=== PATIENT | male | born 1945 | race Caucasian/White ===

== ENCOUNTER 2020-06-16 12:27 | Outpatient (CLI) | payer MEDICARE, OTHER, SELFPAY ==
--- NOTE | ~2020-06-16 | US_ITS ---
EXAMINATION: US renal BI EXAM DATE: 06/16/2020 13:10 INDICATION: Abnormal blood chemistry. TECHNIQUE: Multiple grayscale and Doppler images of the kidneys were obtained (by a technologist who performed the scan) and subsequently reviewed. There is no prior study for comparison. FINDINGS: There is mild bilateral renal cortical thinning. Right kidney: There is normal contour and echogenicity. It measures 10.8 x 5.5 x 5.3 centimeters. T here are no focal renal lesions identified. There is no hydronephrosis. Left kidney: There is normal contour and echogenicity. It measures 10.7 x 4.2 x 4.9 centimeters. Th ere are no focal renal lesions identified. There is no hydronephrosis. Bladder unremarkable. Prostate measures 4 cm in diameter. IMPRESSION: 1. Mild bilateral renal cortical thinning. Reviewed, dictated and finalized at location B.
== END 2020-06-16 12:28 | disposition home or self-care (01) ==
PROVIDERS: PCP Internal Medicine; Visit Provider Internal Medicine
DX: R79.89 Other specified abnormal findings of blood chemistry (principal); R93.89 Abnormal findings on diagnostic imaging of other specified body structures
CPT/HCPCS: 76775

== ENCOUNTER 2022-01-01 15:08 | Inpatient (IN) | payer MEDICARE, OTHER, SELFPAY ==
--- NOTE | ~2022-01-01 | NM_ITS ---
EXAMINATION: NM polo stress w perfusion DATE: 01/02/2022 13:26 INDICATION: Chest pain. TECHNIQUE: Rest images were obtained following intravenous administration of 10 mCi Tc99m tetrofosmin (Myoview). The patient was infused intravenously with Lexiscan (regadenoson). Then, 31.8 mCi Tc99m t etrofosmin (Myoview) was administered intravenously, and stress images were obtained. Data was recons tructed into short axis and horizontal and vertical long axis SPECT images. Gated SPECT images were a lso obtained. COMPARISON: CT abdomen and pelvis 01/01/2022 FINDINGS: There is no definite reversible or fixed perfusion abnormality to suggest ischemia or infar ction. There is no segmental wall motion abnormality. Left ventricular ejection fraction measures > 70%. IMPRESSION: 1. No definite ischemia or infarct. 2. Normal left ventricular ejection fraction measuring >70%. Reviewed, dictated and finalized at location A.
--- NOTE | ~2022-01-01 | CT_ITS ---
EXAMINATION: CT abdomen pelvis wo con DATE: 01/01/2022 19:25 INDICATION: Left upper quadrant pain TECHNIQUE: Computed tomography (CT) of the abdomen and pelvis was performed without intravenous contr ast. The dose-length product (DLP) was 653.27 mGy-cm. Automated exposure control and iterative recons truction technique were employed. COMPARISON: None FINDINGS: Minimal dependent atelectasis is present in the lung bases. The heart size is normal. Th ere is a small sliding hiatal hernia. The liver, spleen, pancreas, gallbladder, and adrenal glands ar e normal. The kidneys are unremarkable. No pathologically enlarged abdominal or pelvic lymph nodes ar e identified. There is no free intraperitoneal gas or evidence of bowel obstruction. Colonic divertic ulosis is present without evidence of diverticulitis. There is a tiny fat-containing umbilical hernia . Changes of left inguinal hernia repair are noted. There is mild lumbar spondylosis. IMPRESSION: 1. No CT correlate for the patient's symptoms. Reviewed, dictated and finalized at location F.
[2022-01-01 15:36] VITALS: BP 179/82; PULSE 74; RESP 20; TEMP 36.2; O2SAT 98
--- NOTE | 2022-01-01 15:40 | ECG_ITS ---
Measurements Intervals [place] Rate: 78 P: 66 MD: 254 QRS: 0 QRSD: 82 T: 39 QT: 359 QTc: 409 Interpretive Statements SINUS RHYTHM WITH FIRST DEGREE AV BLOCK NO PREVIOUS ECG AVAILABLE FOR COMPARISON Electronically Signed On 01-03-2022 13:11:43 CDT by Natacha Clay M.D.
[2022-01-01 15:52] LABS: Basophils Percent Auto 0.3 % (0.2-1.2); Eosinophils Absolute Auto 0.2 K/mm3 (0-0.3); Eosinophils Percent Auto 2.4 % (0-4.4); Hematocrit 50.9 % (42.0-52.0); Hemoglobin 16.5 g/dL (14.0-18.0); Immature Granulocyte Absolute 0.02 K/mm3 (0.00-0.031); Immature Granulocyte Percent A 0.3 % (0-0.5); Lymphocytes Absolute Auto 1.47 K/mm3 (0.9-3.2); Lymphocytes Percent Auto 18.9 % (18.3-44.2); Mean Corpuscular HGB Conc 32.4 g/dl (32-36); Mean Corpuscular Hemoglobin 29.9 pg (26-34); Mean Corpuscular Volume 92.2 fl (80-100); Mean Platelet Volume 11.1 fl (7.4-10.4); Monocytes Absolute Auto 0.5 K/mm3 (0.1-0.6); Monocytes Percent Auto 5.9 % (2.6-8.5); Neutrophils Absolute Auto 5.6 K/mm3 (1.3-6.7); Neutrophils Percent Auto 72.2 % (45.5-73.1); Platelet Count Result 160 k/mm3 (150-375); Red Blood Count 5.52 M/mm3 (4.6-6.20); Red Cell Distribution Width 13.2 % (11.5-14.5); White Blood Count 7.8 K/mm3 (4.5-10.0)
[2022-01-01 16:04] LABS: Alanine Aminotransferase 20 U/L (4-50); Albumin Level 4.7 g/dL (3.5-5.1); Alkaline Phosphatase 87 U/L (38-126); Anion Gap 8 mmol/L (8-16); Aspartate Amino Transferase 33 U/L (17-59); Bilirubin,Total 0.9 mg/dL (0.2-1.3); Blood Urea Nitrogen 22 mg/dL (9-20); Calcium 9.9 mg/dL (8.4-10.2); Carbon Dioxide 28 mmol/L (22-30); Chloride 105 mmol/L (98-107); Estimated CRCL calculation 59 ml/min; Estimated Glomerular Filt Rate > 60; Glucose 117 mg/dL (65-110); Lipase 102 U/L (23-300); Potassium 4.9 mmol/L (3.4-5.0); Sodium 141 mmol/L (137-145)
[2022-01-01 16:52] LABS: Add Urine Microscopic? NO; Appearance Urine Clear (Clear); Bilirubin Urine Negative (Negative); Blood Urine Negative (Negative); Color Urine Straw (Yellow); Glucose Urine UA Negative (Negative); Ketones Urine Negative (Negative); Leukocyte Esterase Ur Negative LEU/UL (Negative); Nitrate Urine Negative (Negative); Protein Urine Negative (Negative); Specific Grav Ur 1.005 (1.001-1.035); Urobilinogen Urine Negative mg/dL (<2.0)
--- NOTE | 2022-01-01 19:03 | ED.ABDPAIN ---
HPI - Abdominal Pain General Chief Complaint: Abdominal Pain Stated Complaint: left sided abd pain Time Seen by Provider: 01/01/22 18:35 Source: patient Mode of arrival: ambulatory Limitations: no limitations History of Present Illness HPI narrative: Patient is a 76-year-old male complaining of left upper quadrant pain, was 5 out of 10, currently does not have any pain, nonradiating started approximately 4 days ago. Patient also complained of chest discomfort intermittent, mild, nonradiating started yesterday. Patient currently denies any chest pain or chest discomfort. Patient denies any shortness of breath, nausea, vomiting, diaphoresis, fever or chills. Related Data Home Medications Medication Instructions Recorded Confirmed aspirin 01/01/22 carvedilol 01/01/22 ciclopirox TOPICAL 01/01/22 felodipine mg PO 01/01/22 fluticasone propionate INTRANASAL 01/01/22 lisinopril 01/01/22 simvastatin mg 01/01/22 zolpidem 01/01/22 Allergies Allergy/AdvReac Type Severity Reaction Status Date / Time No Known Allergies Allergy Unknown Verified 01/01/22 19:46 Review of Systems Review of Systems: All systems reviewed & are unremarkable except as noted in HPI and below Constitutional: Constitutional: Denies body ache(s), Denies chills, Denies excessive sweating, Denies fatigue, Denies fever(s), Denies headache(s), Denies lethargy, Denies malaise, Denies weakness and Denies weight loss Eyes: Eyes: Denies blurry vision, Denies change in vision and Denies loss of vision ENT: Denies dizziness, Denies ear discharge, Denies headache(s), Denies lip swelling, Denies epistaxis, Denies nasal congestion, Denies neck pain, Denies throat swelling and Denies tongue swelling Cardiovascular: Cardiovascular: Denies diaphoresis, Denies rapid heart rate, Denies edema, Denies irregular heart rhythm, Denies lightheadedness, Denies palpitations, Denies dyspnea and Denies dyspnea on exertion Respiratory: Respiratory: Denies chest congestion, Denies cough, Denies hemoptysis, Denies dyspnea and Denies dyspnea on exertion Gastrointestinal: Gastrointestinal: Denies melena, Denies hematochezia, Denies diarrhea, Denies nausea, Denies vomiting and Denies hematemesis Musculoskeletal: Musculoskeletal: Denies abnormal gait, Denies deformity, Denies joint swelling, Denies limited range of motion, Denies neck pain and Denies numbness Neurologic: Denies Abnormal speech present, Denies abnormal gait, Denies confusion, Denies dizziness, Denies headache(s), Denies focal weakness, Denies loss of vision, Denies numbness, Denies Other visual disturbances, Denies Sensory deficit (Neuro) and Denies weakness Psychiatric: Psychiatric: Denies confusion, Denies depression, Denies auditory hallucinations, Denies homicidal ideation and Denies suicidal ideation Endocrine: Endocrine: Denies cold intolerance, Denies excessive sweating, Denies fatigue, Denies heat intolerance and Denies palpitations Hematologic/Lymphatic: Hematologic/Lymphatic: Denies easy bleeding and Denies easy bruising Allergic/Immunologic: Allergic/Immunologic: Denies lip swelling, Denies throat swelling and Denies tongue swelling PMFSH Comments Past medical history: Hypertension Family history: Hypertension Social history: Non-smoker no EtOH or drug use, lives at home with Exam Const: General: cooperative, healthy appearing, comfortable, no acute distress, well developed, alert and awake; No confusion Orientation/consciousness: oriented to person, oriented to place, oriented to time, patient oriented x3 and No confusion Limitations: no limitations HENMT: Head: normal to inspection, normocephalic and atraumatic Ears: hearing grossly normal bilaterally, TM normal on the right and TM normal on the left General nose exam: Normal external nose present, Normal nares present and No nasal discharge present Face and sinus: normal facial exam Mouth: Yes Normal oral and palatal mucosa present, Yes lip n
[2022-01-01 19:42] VITALS: BP 145/69; PULSE 70; RESP 14; O2SAT 99
[2022-01-01 19:45] LABS: Troponin I < 0.012 ng/mL (0.000-0.034)
[2022-01-01] MEDS: LACTATED RINGERS 1,000 ML 999 ML IV CONT (19:50)
--- NOTE | 2022-01-01 20:51 | PM.IMHP ---
H&P: HPI History of Present Illness Date/Time: 01/01/22 20:51 Chief Complaint: Epigastric pain. Narrative: This is a 76-year-old male with past medical history significant for hypertension, chronic back pain, former tobacco user. Patient presents to the emergency room due to abdominal pain localized to the left lower quadrant has had this pain for 4 days in a row known associated or accompanied by other symptoms like nausea vomiting or diarrhea however upon arrival to emergency room patient also complained of chest discomfort. Patient denies any dizziness, lightheadedness, syncope, near syncope, no PND, no orthopnea, no calves pain, he has chronic ankle swelling bilaterally, denies any fevers rigors or chills, preliminary workup has been essentially nonrevealing. Patient has been admitted for further evaluation, management and treatment. Review of Systems Review of Systems: Abdominal pain, chest discomfort. Constitutional: Constitutional: Denies chills, Denies fatigue, Denies fever(s), Denies malaise, Denies night sweats, Denies poor appetite and Denies weakness Eyes: Eyes: Denies change in vision ENT: Denies dysphagia, Denies vertigo, Denies dizziness, Denies nasal congestion, Denies nasal discharge, Denies nasal obstruction and Denies odynophagia Cardiovascular: Cardiovascular: Reports pedal edema, Denies leg edema, Denies lightheadedness, Denies radiating jaw, neck or arm pain, Denies palpitations, Denies dyspnea on exertion, Denies orthopnea and Denies paroxysmal nocturnal dyspnea Respiratory: Respiratory: Denies cough and Denies excessive phlegm production Gastrointestinal: Gastrointestinal: Reports abdominal pain, Denies dyspepsia, Denies heartburn, Denies diarrhea, Denies nausea and Denies vomiting Comments: Patient has been taking naproxen for chronic back pain Genitourinary: Genitourinary: Denies dysuria Musculoskeletal: Musculoskeletal: Reports back pain Integumentary/Breasts: Skin/Breast: Denies rash Neurologic: Denies vertigo, Denies dizziness, Denies focal weakness and Denies Sensory deficit (Neuro) Psychiatric: Psychiatric: Reports no additional psychiatric complaints and Reports as per HPI Endocrine: Endocrine: Reports cold intolerance, Reports heat intolerance, Reports polyphagia, Reports polydipsia and Reports palpitations Hematologic/Lymphatic: Hematologic/Lymphatic: Reports no additional hematologic/lymphatic complaints and Reports as per HPI Allergic/Immunologic: Allergic/Immunologic: Reports no additional allergic/immunologic complaints and Reports as per HPI PMFSH Social History Social History Years smoked: 2 Smoking status: Former smoker Tobacco type: pipe Second hand tobacco smoke exposure: Yes Additional smoking assessment comments: smoked a pipe Alcohol intake: current Drinks per week: 3 Substance use: never Substance use type: does not use Spiritual care concerns: No Meds Home Medications and Allergies Home Medications Medication Instructions Recorded Confirmed Type aspirin 81 mg PO DAILY 01/01/22 01/01/22 History carvedilol 6.25 mg PO BID 01/01/22 01/01/22 History ciclopirox 1 applic TOPICAL DAILY 01/01/22 01/01/22 History felodipine 5 mg PO DAILY 01/01/22 01/01/22 History fexofenadine [Yanna Allergy] 180 mg PO DAILY PRN 01/01/22 01/01/22 History fluticasone propionate 1 spray INTRANASAL DAILY PRN 01/01/22 01/01/22 History lisinopril 40 mg PO DAILY 01/01/22 01/01/22 History melatonin 3 mg PO HS 01/01/22 01/01/22 History naproxen 500 mg PO BID PRN 01/01/22 01/01/22 History simvastatin 20 mg PO QPM 01/01/22 01/01/22 History zolpidem 5 mg PO HS 01/01/22 01/01/22 History Allergies Allergy/AdvReac Type Severity Reaction Status Date / Time No Known Allergies Allergy Unknown Verified 01/02/22 03:28 Vital Signs Vital Signs - 24 hr 01/01/22 15:36 01/01/22 19:42 Temperature 97.1 F L Pulse Rate 74 70 Respiratory Rate 20 14 Blood Pressure 179/82 H 145/69 H
[2022-01-01 22:24] VITALS: BP 152/70; PULSE 61; RESP 16; O2SAT 97
[2022-01-01 22:52] LABS: Troponin I < 0.012 ng/mL (0.000-0.034)
[2022-01-01 22:57] VITALS: BP 149/71; PULSE 66; RESP 18; O2SAT 99
[2022-01-01 23:12] VITALS: BMI 26.9
[2022-01-01 23:13] VITALS: BP 136/71; PULSE 63; RESP 20; TEMP 36; O2SAT 94
--- NOTE | 2022-01-01 23:15 | ADMGEN ---
This patient, Diego Ford, was admitted to 2 Medical Room 242-. Patient/family oriented to hospital policies and general routines including ID bracelet, bed and alarms, visiting hours, pain management, procedures, bathroom and other care routines, personal items, smoking policy, room service/diet, and visiting hours. Information on how to activate the Rapid Response Team has been discussed. Patient/Family are encouraged to report perceived risks to care and to ask questions if they do not understand what they are told or what they should do.
[2022-01-01 23:17] VITALS: PULSE 63; RESP 20; O2SAT 94
[2022-01-02] VITALS (12 sets, daily range): BP systolic 129–139; BP diastolic 66–71; PULSE 61–100; RESP 17–20; TEMP 35.9–36.8; O2SAT 96–98
--- NOTE | 2022-01-02 | ECHO_ITS ---
Patient Info Name: Deigo Ford Age: 76 years : 1945 Gender: Male Ht: 72 in Wt: 198 lbs BSA: 2.15 m2 HR: 65 bpm BP: 129 / 71 mmHg Heart Rhythm: Sinus Rhythm Technical Quality: Fair Exam Date: 01/02/2022 8:43 AM Exam Location: [facility] Patient Status: Outpatient Admit Date: 01/01/2022 Staff Ordering Physician: Jorge Smyth DO Building Services Coordinator: Jessica Brizuela RDCS Attending Provider: Naveen Blackwell MD Referring Physician: Haja BULLOCK; Exam Type: CA echo doppler color flow Study Info Indications - LUCIA Complete two-dimensional, color flow and Doppler transthoracic echocardiogram is performed. Summary 1. Complete two-dimensional, color flow and Doppler transthoracic echocardiogram is performed. 2. Left ventricular chamber dimension is normal. 3. Left ventricular systolic function is normal, estimated at 65-70%. 4. The left ventricular diastolic function is normal. 5. E/e' tissue doppler is not perform. 6. There is severe aortic valve sclerosis. 7. There is mild aortic valve stenosis based on a peak velocity of 195 cm/s, mean gradient of 8 mmHg, and aortic valve area of 1.9 cm2. 8. The mitral valve has moderately calcified leaflets. 9. No pulmonary hypertension, estimated pulmonary arterial systolic pressure is 18 mmHg. Left Ventricle E/e' tissue doppler is not perform. Left ventricular chamber dimension is normal. Left ventricular systolic function is normal, estimated at 65-70%. The left ventricular diastolic function is normal. Right Ventricle Right ventricular systolic function is normal and with normal TAPSE 2.5 cm. Right ventricular chamber dimension is normal. Left Atria Left atrial chamber dimension is normal. Right Atria Right atrial chamber dimension is normal. Aortic Valve There is mild aortic valve stenosis based on a peak velocity of 195 cm/s, mean gradient of 8 mmHg, and aortic valve area of 1.9 cm2. The aortic valve is trileaflet. There is severe aortic valve sclerosis. There is no aortic valve regurgitation. Pulmonic Valve There is no pulmonic regurgitation. Mitral Valve The mitral valve has moderately calcified leaflets. There is no mitral valve stenosis. There is no mitral valve regurgitation. Tricuspid Valve There is no tricuspid valve regurgitation. No pulmonary hypertension, estimated pulmonary arterial systolic pressure is 18 mmHg. Pericardium/Pleural There is no pericardial effusion. Inferior Vena Cava Normal inferior vena cava with >50% collapse upon inspiration consistent with normal right atrial pressure, 5 mmHg. Aorta The aortic root size at the sinus of Valsalva is normal. Left Ventricular Outflow Tract Name Value Normal LVOT 2D LVOT Diameter 2.1 cm LVOT Doppler LVOT Peak Gradient 5 mmHg LVOT Mean Gradient 2 mmHg LVOT VTI 20 cm LVOT VTI/AV VTI Ratio 0.6 LVOT Stroke Volume 71 ml LVOT CO 5.7 l/min LVOT CI
--- NOTE | 2022-01-02 | EST_ITS ---
Patient Info Name: Diego Ford Age: 76 years : 1945 Gender: Male Ht: 72 in Wt: 198 lbs BSA: 2.15 m2 Exam Date: 01/02/2022 11:37 AM Exam Location: [facility] Stress Patient Status: Inpatient Admit Date: 01/01/2022 Staff Ordering Physician: Jorge Smyth DO Attending Provider: Naveen Blackwell MD Exercise Technologist: Radha Méndez RDCS Exercise Physician: Jorge Smyth DO Exam Type: CA stress polo w NM Study Info Indications R07.9 - Chest pain, unspecified A regadenoson stress test was performed. Summary 1. 1. Negative lexiscan stress test for ischemic ST changes by ECG criteria. 2. 2. Baseline hypertension. 3. 3. Nuclear scan to follow and will be reported separately. Please correlate with it. 4. 4. Patient informed of the above results. Protocol: Lexiscan Stress ECG Details Stage: REST Duration (min): 7 min : 17 sec HR (bpm): 81 SBP (mmHg): 142 DBP (mmHg): 70 Stage: REST Duration (min): 11 min : 29 sec HR (bpm): 82 SBP (mmHg): 142 DBP (mmHg): 70 Stage: STAGE 1 Duration (min): 0 min : 59 sec HR (bpm): 106 SBP (mmHg): 147 DBP (mmHg): 75 Stage: RECOVERY Duration (min): 1 min : 0 sec HR (bpm): 105 SBP (mmHg): 136 DBP (mmHg): 71 Stage: RECOVERY Duration (min): 2 min : 0 sec HR (bpm): 117 SBP (mmHg): 136 DBP (mmHg): 71 Stage: RECOVERY Duration (min): 3 min : 0 sec HR (bpm): 112 SBP (mmHg): 138 DBP (mmHg): 74 Stage: RECOVERY Duration (min): 4 min : 0 sec HR (bpm): 102 SBP (mmHg): 138 DBP (mmHg): 74 Stage: RECOVERY Duration (min): 5 min : 0 sec HR (bpm): 102 SBP (mmHg): 148 DBP (mmHg): 78 Stage: RECOVERY Duration (min): 5 min : 5 sec HR (bpm): 101 SBP (mmHg): 148 DBP (mmHg): 78 Rest HR: 82 bpm Peak HR: 117 bpm Rest Sys BP: 142 mmHg Peak Sys BP: 148 mmHg Max Pred HR: 142 bpm % Max Pred HR: 82 % Target HR: 121 bpm Max RPP: 17,316 bpm*mmHg Termination Reason: Completed protocol Cardiac Symptoms: Shortness of breath Total Time: 1 min : 0 sec Rest Morales BP: 70 mmHg Peak Morales BP: 78 mmHg Total Dose: 0.4 mg Resting ECG Sinus rhythm with first degree AV block. Stress ECG No ST changes. Arrhythmias None. Report Signatures
[2022-01-02 01:11] LABS: Troponin I < 0.012 ng/mL (0.000-0.034)
--- NOTE | 2022-01-02 04:23 | ECG_ITS ---
Measurements Intervals [place] Rate: 66 P: MT: 0 QRS: -16 QRSD: 78 T: 13 QT: 390 QTc: 411 Interpretive Statements SINUS RHYTHM WITH 2ND DEGREE AV BLOCK, MOBITZ TYPE I ([place]) COMPARED TO ECG 01/01/2022 18:41:45 NO SIGNIFICANT CHANGES Electronically Signed On 01-03-2022 13:24:50 CDT by Natacha Clay M.D.
[2022-01-02] MEDS: carvediloL 6.25 MG TABLET PO ×2 (05:01→16:36)
--- NOTE | 2022-01-02 06:21 | PC.NURSE ---
patient ekg in ed showed sr 1st degree avb. tele strip when arrived on floor showed same. and patient denied chest discomfort. at 0400 rhythm changed to a second degree avb type one. called and informed dr villanueva and orders received. repeat ekg verified second degree avb. coreg given early. patient remained asymptomatic and is asymptomatic currently. vs stable. tni neg x3.
--- NOTE | 2022-01-02 07:52 | PM.CNCAR ---
Assessment and Plan Assessment and plan (1) Chest pain in adult: Code(s): R07.9 - Chest pain, unspecified Status: Acute Assessment and Plan: Atypical. Resolved. Could be musculoskeletal. He has been ruled out for CA by serial troponin and EKG. Obtain Lexiscan myoview stress test and echo. If unremarkable, no further cardiac workup is needed. (2) Abdominal pain: Qualifiers: Abdominal location: unspecified location Qualified Code(s): R10.9 - Unspecified abdominal pain Code(s): R10.9 - Unspecified abdominal pain Status: Acute Assessment and Plan: Workup per hospitalist. (3) Hypertension: Code(s): I10 - Essential (primary) hypertension Status: Acute Assessment and Plan: Stable. History of Present Illness History of Present Illness Consult date/time: 01/02/22 07:52 Reason for consult: CP. 76 yr old man presented to ER with abdominal pain. He has a history of hypertension. Reports he had intermittent left lower quadrant abdominal pain for 4 days described as a twinge of pain. While in ER waiting he reported he had right sided chest pain for 30 minutes earlier in the day and then while waiting he had left sided chest pain transiently. No recurrences. He can walk 1/2 mile at a slow pace. Denies orthopnea, sob, PND, edema, palpitations, dizziness. EKG shows sinus rhythm with first degree AV block, and then while sleeping he had second degree AV block, type I. Troponin neg x [address] chest shows mild emphysema, coronary calcifications, no pulm embolism, small hiatal hernia; spondylosis. Reason For Visit: Chest Pain, Abdominal Pain Review of Systems Review of Systems: All systems reviewed & are unremarkable except as noted in HPI and below Constitutional: Constitutional: Reports as per HPI, Denies chills and Denies fever(s) Cardiovascular: Cardiovascular: Reports as per HPI, Reports chest pain, Denies irregular heart rhythm, Denies leg edema and Denies lightheadedness Respiratory: Respiratory: Reports as per HPI and Denies dyspnea Gastrointestinal: Gastrointestinal: Reports as per HPI and Reports abdominal pain Genitourinary: Genitourinary: Reports as per HPI and Denies dysuria Musculoskeletal: Musculoskeletal: Reports as per HPI Neurologic: Reports as per HPI, Denies dizziness and Denies syncope [facility] Social History Social History Years smoked: 2 Smoking status: Former smoker Tobacco type: pipe Second hand tobacco smoke exposure: Yes Additional smoking assessment comments: smoked a pipe Alcohol intake: current Drinks per week: 3 Substance use: never Substance use type: does not use Spiritual care concerns: No Meds Home Medications and Allergies Home Medications Medication Instructions Recorded Confirmed Type aspirin 81 mg PO DAILY 01/01/22 01/01/22 History carvedilol 6.25 mg PO BID 01/01/22 01/01/22 History ciclopirox 1 applic TOPICAL DAILY 01/01/22 01/01/22 History felodipine 5 mg PO DAILY 01/01/22 01/01/22 History fexofenadine [Yanna Allergy] 180 mg PO DAILY PRN 01/01/22 01/01/22 History fluticasone propionate 1 spray INTRANASAL DAILY PRN 01/01/22 01/01/22 History lisinopril 40 mg PO DAILY 01/01/22 01/01/22 History melatonin 3 mg PO HS 01/01/22 01/01/22 History naproxen 500 mg PO BID PRN 01/01/22 01/01/22 History simvastatin 20 mg PO QPM 01/01/22 01/01/22 History zolpidem 5 mg PO HS 01/01/22 01/01/22 History Allergies Allergy/AdvReac Type Severity Reaction Status Date / Time No Known Allergies Allergy Unknown Verified 01/02/22 03:28 Vital Signs Vital Signs - 24 hr 01/01/22 15:36 01/01/22 19:42 01/01/22 22:24 Temperature 97.1 F L Pulse Rate 74 70 61 Respiratory Rate 20 14 16 Blood Pressure 179/82 H 145/69 H 152/70 H Pulse Oximetry 98 99 97 01/01/22 22:57 01/01/22 23:13 01/01/22 23:17 Temperature 96.8 F L Pulse Rate 66 63 63 Respiratory Rate 18 20 20 Blood Pressure 149/71 H 136/71 P
[2022-01-02] MEDS: FELODIPINE 5 MG TAB CR PO (08:20)
[2022-01-02] MEDS: lisinopriL 20 MG TABLET 40 MG PO (08:21)
--- NOTE | 2022-01-02 13:10 | WPDGICN ---
Assessment and Plan Assessment and plan (1) Left upper quadrant pain: Code(s): R10.12 - Left upper quadrant pain Status: Acute Assessment and Plan: the pain is not present there today. He has had nothing to eat since he arrived yesterday. He does not believe that he was careful about taking naproxen with food. I will schedule her for EGD to be done tomorrow morning assuming that his stress test is negative (2) Chest pain in adult: Code(s): R07.9 - Chest pain, unspecified Status: Acute Assessment and Plan: His chest pain has resolved. Troponins are normal. The stress test is pending. (3) Chronic back pain: Code(s): M54.9 - Dorsalgia, unspecified; G89.29 - Other chronic pain Status: Acute Assessment and Plan: his pain did respond to the 3 weeks of naproxen. This is a nagging pain that he has had chronically, primarily in the right side GI Consult Note Consult date/time: 01/02/22 13:10 HPI: Diego Ford is a 76 year old male who was admitted with epigastric and left upper quadrant pain that began several days ago. The pain he describes as 1st starting like a bee sting and later a tapping type sensation. It is not continuous.Yesterday evening the pain also spread to his chest. He has a history of hypertension. Also had back pain which became quite severe a few weeks ago. He had asked his kidney specialist if would be okay for him to go back on naproxen for while. He took 500 mg daily for about 3 weeks and just stopped a couple of days ago. He has never before had ulcers or other gastrointestinal illnesses. He denies heartburn dysphagia vomiting or nausea or change in bowel habits. He has never had a colonoscopy. He has EKG had showed first-degree and second-degree heart block. Troponins are normal. Cardiology was consulted and has just finished a Lexiscan stress test with results pending. Review of Systems Review of Systems: All systems reviewed & are unremarkable except as noted in HPI and below [facility] Social History Social History Years smoked: 2 Smoking status: Former smoker Tobacco type: pipe Second hand tobacco smoke exposure: Yes Additional smoking assessment comments: smoked a pipe Alcohol intake: current Drinks per week: 3 Substance use: never Substance use type: does not use Spiritual care concerns: No Meds Home Medications and Allergies Home Medications Medication Instructions Recorded Confirmed Type aspirin 81 mg PO DAILY 01/01/22 01/01/22 History carvedilol 6.25 mg PO BID 01/01/22 01/01/22 History ciclopirox 1 applic TOPICAL DAILY 01/01/22 01/01/22 History felodipine 5 mg PO DAILY 01/01/22 01/01/22 History fexofenadine [Yanna Allergy] 180 mg PO DAILY PRN 01/01/22 01/01/22 History fluticasone propionate 1 spray INTRANASAL DAILY PRN 01/01/22 01/01/22 History lisinopril 40 mg PO DAILY 01/01/22 01/01/22 History melatonin 3 mg PO HS 01/01/22 01/01/22 History naproxen 500 mg PO BID PRN 01/01/22 01/01/22 History simvastatin 20 mg PO QPM 01/01/22 01/01/22 History zolpidem 5 mg PO HS 01/01/22 01/01/22 History Allergies Allergy/AdvReac Type Severity Reaction Status Date / Time No Known Allergies Allergy Unknown Verified 01/02/22 03:28 Vital Signs Vital Signs - 24 hr 01/01/22 15:36 01/01/22 19:42 01/01/22 22:24 Temperature 36.2 C L Pulse Rate 74 70 61 Respiratory Rate 20 14 16 Blood Pressure 179/82 H 145/69 H 152/70 H Pulse Oximetry 98 99 97 01/01/22 22:57 01/01/22 23:13 01/01/22 23:17 Temperature 36.0 C L Pulse Rate 66 63 63 Respiratory Rate 18 20 20 Blood Pressure 149/71 H 136/71 Pulse Oximetry 99 94 94 01/02/22 00:00 01/02/22 03:57 01/02/22 04:00 Temperature 35.9 C L Pulse Rate 61 63 75 Respiratory Rate 18 Blood Pressure 129/71 Pulse Oximetry 98 01/02/22 05:01 01/02/22 08:00 01/02/22 08:27 Temperature Pulse
--- NOTE | 2022-01-02 14:06 | PM.IMPN ---
Progress Note: A&P Assessment and Plan (1) Chest pain in adult: Code(s): R07.9 - Chest pain, unspecified Status: Acute Assessment and Plan: Admit to general medical floor with telemetry Serial troponins Stress test in a.m. Supportive care Continue to monitor 01/02/2022 interval history: patient presented with epigastric pain concerning for coronary artery disease patient 3 sets of cardiac enzymes a normal, there are no acute changes on EKG and to further evaluate patient had a Lexiscan which is essentially normal with ejection fraction of 70%, patient also seen by GI for epigastric pain recommending EGD to further evaluate which is scheduled for tomorrow, remains clinically stable currently denies any chest pain shortness of breath palpitation fever or chills. (2) Abdominal pain: Qualifiers: Abdominal location: unspecified location Qualified Code(s): R10.9 - Unspecified abdominal pain Code(s): R10.9 - Unspecified abdominal pain Status: Acute Assessment and Plan: CT of abdomen and pelvis with no acute abnormalities Supportive care Patient has been taking naproxen at home GI consult (3) Chronic back pain: Code(s): M54.9 - Dorsalgia, unspecified; G89.29 - Other chronic pain Status: Acute Assessment and Plan: Tylenol p.r.n. (4) Hypertension: Code(s): I10 - Essential (primary) hypertension Status: Acute Assessment and Plan: Continue home meds Subjective Date/time seen: 01/02/22 14:06 Chief Complaint: Epigastric pain. HPI-Narrative: This is a 76-year-old male with past medical history significant for hypertension, chronic back pain, former tobacco user. Patient presents to the emergency room due to abdominal pain localized to the left lower quadrant has had this pain for 4 days in a row known associated or accompanied by other symptoms like nausea vomiting or diarrhea however upon arrival to emergency room patient also complained of chest discomfort. Patient denies any dizziness, lightheadedness, syncope, near syncope, no PND, no orthopnea, no calves pain, he has chronic ankle swelling bilaterally, denies any fevers rigors or chills, preliminary workup has been essentially nonrevealing. Patient has been admitted for further evaluation, management and treatment. 01/02/2022 interval history: patient presented with epigastric pain concerning for coronary artery disease patient 3 sets of cardiac enzymes a normal, there are no acute changes on EKG and to further evaluate patient had a Lexiscan which is essentially normal with ejection fraction of 70%, patient also seen by GI for epigastric pain recommending EGD to further evaluate which is scheduled for tomorrow, remains clinically stable currently denies any chest pain shortness of breath palpitation fever or chills. Review of Systems Review of Systems: All systems reviewed & are unremarkable except as noted in HPI and below Exam Narrative: Patient is comfortable, NAD HEENT: eyes are clear and none icteric LUNGS:CTA HEART: RR S1S2 ABD: BS+, Soft and tender in epigastric Lower extremities: no edema SKIN: nonjaundiced Neuro: grossly intact. Objective Data Vital Signs Vital Signs: Vital Signs - 24 hr 01/01/22 15:36 01/01/22 19:42 01/01/22 22:24 Temperature 97.1 F L Pulse Rate 74 70 61 Respiratory Rate 20 14 16 Blood Pressure 179/82 H 145/69 H 152/70 H Pulse Oximetry 98 99 97 01/01/22 22:57 01/01/22 23:13 01/01/22 23:17 Temperature 96.8 F L Pulse Rate 66 63 63 Respiratory Rate 18 20 20 Blood Pressure 149/71 H 136/71 Pulse Oximetry 99 94 94 01/02/22 00:00 01/02/22 03:57 01/02/22 04:00 Temperature 96.7 F L Pulse Rate 61 63 75 Respiratory Rate 18 Blood Pressure 129/71 Pulse Oximetry 98 01/02/22 05:01 01/02/22 08:00 01/02/22 08:27 Temperature Pulse Rate 65 75 Respiratory Rate Blood Pressure Pulse Oximetry 98 01/02/22 12:00 Tem
[2022-01-02] MEDS: SIMVASTATIN 20 MG TABLET PO (17:07)
[2022-01-02] MEDS: ZOLPIDEM TARTRATE (*CRX) 5 MG TABLET PO (20:44)
[2022-01-02] MEDS: MELATONIN 3 MG TABLET PO (20:44)
[2022-01-03] VITALS (12 sets, daily range): BP systolic 109–133; BP diastolic 52–86; PULSE 71–88; RESP 16–20; TEMP 35.6–36.3; O2SAT 96–98
--- NOTE | 2022-01-03 07:54 | PM.PNCARD ---
Progress Note: A&P Assessment and Plan (1) Chest pain in adult: Code(s): R07.9 - Chest pain, unspecified Status: Acute Assessment and Plan: Atypical. Resolved. Could be musculoskeletal. He has been ruled out for CA by serial troponin and EKG. Lexiscan myoview stress test is unremarkable. Echo shows EF 65-70%, mild aortic stenosis. No further cardiac workup needed. (2) Abdominal pain: Qualifiers: Abdominal location: unspecified location Qualified Code(s): R10.9 - Unspecified abdominal pain Code(s): R10.9 - Unspecified abdominal pain Status: Acute Assessment and Plan: Going for endoscopy today. (3) Hypertension: Code(s): I10 - Essential (primary) hypertension Status: Acute Assessment and Plan: Stable. (4) Aortic stenosis: Code(s): I35.0 - Nonrheumatic aortic (valve) stenosis Status: Acute Assessment and Plan: Mild. Will sign off, please call with any questions. Have patient f/u with me in 2 weeks upon discharge. Subjective Date/time seen: 01/03/22 07:54 Denies any more chest pain, or sob. No more abdominal pain. Exam Const: General: cooperative, healthy appearing and comfortable Resp: Auscultation: clear to auscultation bilaterally, no crackles, no rales, no rhonchi and no wheezes Cardio: Jugular venous distension: no JVD Rate: regular rate Rhythm: regular rhythm Heart sounds: no murmurs Peripheral pulses: dorsalis pedis present GI: GI Palp: No abdominal tenderness and Yes Soft to palpation Neuro: General: oriented to person, oriented to place and oriented to time Extrem: Right lower extremity: no edema Left lower extremity: no edema Objective Data Vital Signs Vital Signs: Vital Signs - 24 hr 01/02/22 08:00 01/02/22 08:27 01/02/22 12:00 Temperature Pulse Rate 75 100 Respiratory Rate Blood Pressure Pulse Oximetry 98 01/02/22 14:40 01/02/22 16:00 01/02/22 16:36 Temperature 98.3 F Pulse Rate 83 76 84 Respiratory Rate 17 Blood Pressure 138/66 Pulse Oximetry 97 01/02/22 20:00 01/02/22 20:19 01/03/22 00:00 Temperature 97.0 F L Pulse Rate 93 81 75 Respiratory Rate 20 Blood Pressure 139/67 Pulse Oximetry 96 01/03/22 04:00 01/03/22 04:26 Temperature 96.1 F L Pulse Rate 73 77 Respiratory Rate 20 Blood Pressure 118/60 Pulse Oximetry 96 Intake/Output Intake/Output: Intake & Output 12/31/21 01/01/22 01/02/22 01/03/22 23:59 23:59 23:59 23:59 Intake Total 1000 1195 240 Output Total 2085 400 Balance 1000 -890 -160 Meds/Results Medications: Active Medications Generic Name Dose Route Start Last Admin Trade Name Freq PRN Reason Stop Dose Admin Aspirin 81 mg 01/02/22 09:00 01/03/22 07:47 Aspirin 81 Mg Enteric Tablet PO Not Given DAILY [facility] Carvedilol 6.25 mg 01/02/22 09:00 01/02/22 16:36 Carvedilol 6.25 Mg Tablet PO 6.25 mg BIDWM SHARI Administration Felodipine 5 mg 01/02/22 09:00 01/02/22 08:20 Felodipine 5 Mg Tab Cr PO 5 mg DAILY SHARI Administration Fluticasone Propionate 1 spray 01/02/22 03:14 Fluticasone Propionate 0.05% Na Spr 16 Gm Btl (*Bkc) NASAL DAILY PRN Allergy Symptoms Lactated Ringer's 1,000 mls @ 150 mls/hr 01/02/22 14:15 Lr - Lactated Ringers Iv IV CONT .[id number] [facility] Lisinopril 40 mg 01/02/22 09:00 01/02/22 08:21 Lisinopril 20 Mg Tablet PO 40 mg DAILY SHARI Administration Loratadine 10 mg 01/02/22 03:14 Loratadine 10 Mg Tablet PO DAILY PRN Allergy Symptoms Melatonin 3 mg 01/02/22 21:00 01/02/22 20:44 Melatonin 3 Mg Tablet PO 3 mg HS SHARI Administration Miconazole Nitrate 1 applic 01/02/22 09:00 01/02/22 08:21 Miconazole Nitrate 2% Cream 30 Gm Tube TOPICAL 02/01/22 08:59 Not Given DAILY SHARI Perflutren Lipid Microsphere 0 ml 01/02/22 06:43 Perflutren Lipid Microspheres 1.5 Ml Vial Diluted To 10 Ml Total Volume IV PU
[2022-01-03] MEDS: carvediloL 6.25 MG TABLET PO (08:15)
[2022-01-03] MEDS: FELODIPINE 5 MG TAB CR PO (08:16)
[2022-01-03] MEDS: lisinopriL 20 MG TABLET 40 MG PO (08:16)
[2022-01-03] MEDS: LACTATED RINGERS 1,000 ML 150 ML IV CONT (10:03)
--- NOTE | 2022-01-03 10:15 | P.PNAN_ITS ---
Anes - Initial Pre Proc Eval Procedure: Operation Date: 01/03/22 14:15 Proposed Procedures p Esophagogastroduodenoscopy - Lyle David MD Date/Time: 01/03/22 10:15 Surgeon: Naveen Blackwell MD Pre Op Diagnosis: Chest Pain, Abdominal Pain Patient Data Age: 76 Gender: M Height: 1.83 m Weight: 90 kg Last Vital Signs Temp 97.4 F L 01/03/22 10:10 Pulse 76 01/03/22 10:10 Resp 18 01/03/22 10:10 BP 133/76 01/03/22 10:10 Pulse Ox 98 01/03/22 10:10 Allergies Allergy/AdvReac Type Severity Reaction Status Date / Time No Known Allergies Allergy Unknown Verified 01/03/22 10:05 Home Medications Medication Instructions Recorded Confirmed Type aspirin 81 mg PO DAILY 01/01/22 01/01/22 History carvedilol 6.25 mg PO BID 01/01/22 01/01/22 History ciclopirox 1 applic TOPICAL DAILY 01/01/22 01/01/22 History felodipine 5 mg PO DAILY 01/01/22 01/01/22 History fexofenadine [Yanna Allergy] 180 mg PO DAILY PRN 01/01/22 01/01/22 History fluticasone propionate 1 spray INTRANASAL DAILY PRN 01/01/22 01/01/22 History lisinopril 40 mg PO DAILY 01/01/22 01/01/22 History melatonin 3 mg PO HS 01/01/22 01/01/22 History naproxen 500 mg PO BID PRN 01/01/22 01/01/22 History simvastatin 20 mg PO QPM 01/01/22 01/01/22 History zolpidem 5 mg PO HS 01/01/22 01/01/22 History Patient hx anesthesia problems: none Family hx anesthesia problems: none Results Review: All pre-operative results and documents have been reviewed as part of the pre-operative evaluation. [facility] Social History Social History Years smoked: 2 Smoking status: Former smoker Tobacco type: pipe Second hand tobacco smoke exposure: Yes Additional smoking assessment comments: smoked a pipe Alcohol intake: current Drinks per week: 3 Substance use: never Substance use type: does not use Spiritual care concerns: No Anes - Eval Final PreProcedure Day of Procedure 01/03/22 10:15 Patient weight: normal Heart: regular rate and rhythm and murmur Lungs: clear to auscultation Airway: Mallampati scale class II Neurological: alert and oriented Last oral intake: >/= 8 hours ASA classification: III Emergent: no Anesthetic plan: proceed Anesthesia type and monitoring: general GIVS and standard monitoring Results Review: All pre-operative results and documents have been reviewed as part of the pre-operative evaluation. Informed Consent: The patient's anesthetic plan and its attendant risks and benefits were discussed with the patient/family/POA. Questions were solicited and answers provided to the satisfaction of the patient/family/POA.
--- NOTE | 2022-01-03 12:08 | PM.DS ---
DS: Admitting Diagnosis Discharge Date 01/03/2022 Admitting Diagnosis Epigastric pain DS: Discharge Diagnosis Discharge Diagnosis (1) Chest pain in adult: Code(s): R07.9 - Chest pain, unspecified Status: Acute Assessment and Plan: Admit to general medical floor with telemetry Serial troponins Stress test in a.m. Supportive care Continue to monitor 01/02/2022 interval history: patient presented with epigastric pain concerning for coronary artery disease patient 3 sets of cardiac enzymes a normal, there are no acute changes on EKG and to further evaluate patient had a Lexiscan which is essentially normal with ejection fraction of 70%, patient also seen by GI for epigastric pain recommending EGD to further evaluate which is scheduled for tomorrow, remains clinically stable currently denies any chest pain shortness of breath palpitation fever or chills. (2) Abdominal pain: Qualifiers: Abdominal location: unspecified location Qualified Code(s): R10.9 - Unspecified abdominal pain Code(s): R10.9 - Unspecified abdominal pain Status: Acute Assessment and Plan: CT of abdomen and pelvis with no acute abnormalities Supportive care Patient has been taking naproxen at home GI consult (3) Chronic back pain: Code(s): M54.9 - Dorsalgia, unspecified; G89.29 - Other chronic pain Status: Acute Assessment and Plan: Tylenol p.r.n. (4) Hypertension: Code(s): I10 - Essential (primary) hypertension Status: Acute Assessment and Plan: Continue home meds DS: Summary Hospital Course Reason for hospitalization: Chief Complaint: Epigastric pain. Narrative: This is a 76-year-old male with past medical history significant for hypertension, chronic back pain, former tobacco user. Patient presents to the emergency room due to abdominal pain localized to the left lower quadrant has had this pain for 4 days in a row known associated or accompanied by other symptoms like nausea vomiting or diarrhea however upon arrival to emergency room patient also complained of chest discomfort. Patient denies any dizziness, lightheadedness, syncope, near syncope, no PND, no orthopnea, no calves pain, he has chronic ankle swelling bilaterally, denies any fevers rigors or chills, preliminary workup has been essentially nonrevealing. Patient has been admitted for further evaluation, management and treatment. Hospital Course: Admit to general medical floor with telemetry Serial troponins Stress test in a.m. Supportive care Continue to monitor 01/02/2022 interval history: patient presented with epigastric pain concerning for coronary artery disease patient 3 sets of cardiac enzymes a normal, there are no acute changes on EKG and to further evaluate patient had a Lexiscan which is essentially normal with ejection fraction of 70%, patient also seen by GI for epigastric pain recommending EGD to further evaluate which is scheduled for tomorrow, remains clinically stable currently denies any chest pain shortness of breath palpitation fever or chills. to further evaluate patient had a EGD which showed gastritis most likely patient had been using NSAIDs, also showed Schatzkis ring, will start the patient on PPI and discharge patient home today Status at Discharge Functional status at discharge: independent ambulation Overall status at discharge: patient is back to baseline Time Spent with Patient Time attestation: Total time spent providing and/or coordinating discharge services: Patient was seen and examined at the time of the discharge Condition at discharge is stable Code status: Full code. Time spent preparing discharge summary, discharge medications, discussing discharge planning with leather case finisher and patient is 35 minutes. Time spent: Greater than 30 minutes Exam Narrative: Patient is comfortable, NAD HEENT: eyes are clear and none icteric LUNGS:CTA HEART: RR S1S2 ABD: BS+, Soft
== END 2022-01-03 12:51 | disposition home or self-care (01) | DRG 392 ==
LOC: ANHED 20:02 → ANH2MED 22:09
PROVIDERS: Emergency Medicine; Internal Medicine Gastroenterology; Admitting Provider Internal Medicine; Emergency Provider Emergency Medicine; PCP Internal Medicine; Visit Provider Family Medicine
PROC: 0DJ08ZZ Inspection of Upper Intestinal Tract, Via Natural or Artificial Opening Endoscopic (ICD-10-PCS; CPT 43235; principal; 2022-01-03 14:15)
DX: K29.70 Gastritis, unspecified, without bleeding (principal); K22.2 Esophageal obstruction; R07.89 Other chest pain; M54.9 Dorsalgia, unspecified; G89.29 Other chronic pain; I10 Essential (primary) hypertension; I35.0 Nonrheumatic aortic (valve) stenosis; Z87.891 Personal history of nicotine dependence
CPT/HCPCS: 36415; 74176; 78452; 80053; 81003; 83690; 84484; 85025; 87081; 88305; 93005; 93017; 93306; 99285; A9270; A9502; G0378; J2001; J2704; J2785; J7120

== ENCOUNTER 2022-03-24 11:18 | Emergency (ER) | payer MEDICARE, OTHER, SELFPAY ==
--- NOTE | ~2022-03-24 | XR_ITS ---
XR chest 2V DATE: 03/24/2022 11:59 INDICATION: Cough TECHNIQUE: PA and lateral views COMPARISON: 09/15/2019 CT chest 09/12/2017 PA and lateral chest FINDINGS: Mild chronic discoid scarring at the right lung base. Mild elevation of right diaphragm. No pulmonary infiltrate or consolidation, pleural effusion or pulmonary vascular congestion or pneumo thorax. Normal heart size. Aortic arch calcification. Diffuse idiopathic skeletal hyperostosis of the thoracic spine. Osteopenia. 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 IMPRESSION: Chronic mild discoid scarring in the right lower lung and chronic m ild right diaphragm elevation Aortic calcification Diffuse idiopathic skeletal hyperostosis of the thoracic spine Osteopenia No active cardiopulmonary disease or significant change since 09/12/2017
[2022-03-24 11:37] VITALS: BP 118/60; PULSE 89; RESP 16; TEMP 37.6; O2SAT 96
--- NOTE | 2022-03-24 11:41 | ED.URI ---
HPI - URI/Sore Throat General Chief Complaint: Upper Respiratory Infection Stated Complaint: cough Time Seen by Provider: 03/24/22 11:43 Source: patient, RN notes reviewed and old records reviewed Mode of arrival: ambulatory Limitations: no limitations History of Present Illness HPI Narrative: 77-year-old male who presents to express care with complaints of harsh cough since Saturday which is mostly dry with occasional clear mucous expectorated. Patient reports that he has been taking Flonase and also using his inhaler at home without resolution of symptoms. Patient has had COVID vaccinations and also Booster and flu shot this season. Patient states he did home COVID test on which was negative. patient reports that he has some anterior upper chest discomfort with cough only, denies ay palpations. MD elicited complaint: cough Pertinent past history: pneumonia and other (BRONCHITIS) Onset (ago): day(s) (3) Treatments prior to arrival: other (Flonase and inhaler) Related Data Home Medications Medication Instructions Recorded Confirmed aspirin 81 mg tablet,delayed 81 mg PO DAILY 01/01/22 03/24/22 release carvedilol 6.25 mg tablet 6.25 mg PO BID 01/01/22 03/24/22 ciclopirox 8 % topical solution 1 applic topical DAILY 01/01/22 03/24/22 felodipine 5 mg tablet,extended 5 mg PO DAILY 01/01/22 03/24/22 release 24 hr fexofenadine 180 mg tablet 180 mg PO DAILY PRN Allergy 01/01/22 03/24/22 (Yanna Allergy) Symptoms fluticasone propionate 50 1 spray intranasal DAILY PRN 01/01/22 03/24/22 mcg/actuation nasal Allergy Symptoms spray,suspension lisinopril 40 mg tablet 40 mg PO DAILY 01/01/22 03/24/22 melatonin 3 mg tablet 3 mg PO HS 01/01/22 03/24/22 naproxen 500 mg tablet 500 mg PO BID PRN Pain (Scale 01/01/22 03/24/22 Score 1-3) simvastatin 20 mg tablet 20 mg PO QPM 01/01/22 03/24/22 zolpidem 5 mg tablet 5 mg PO HS 01/01/22 03/24/22 Allergies Allergy/AdvReac Type Severity Reaction Status Date / Time No Known Allergies Allergy Unknown Verified 03/24/22 11:33 Review of Systems Review of Systems: CONSTITUTIONAL: Low grade fever, chills, or sweats. EYES: Denies visual changes, redness, or discharge. ENT: Positive for rhinorrhea, congestion, sore throat, no otalgia. CARDIOVASCULAR: Positive upper anterior chest pain with cough no palpitations, or edema. RESPIRATORY: Positive for cough or dyspnea. GASTROINTESTINAL: Denies abdominal pain, nausea, vomiting, or diarrhea. GENITOURINARY: Denies dysuria or hematuria. SKIN: Denies rash or itching. MUSCULOSKELETAL: Denies back pain, joint pain, or myalgia. NEUROLOGIC: Denies headache, numbness, or weakness. PSYCHIATRIC: Denies anxiety or depression. All systems reviewed & are unremarkable except as noted in HPI and below PMFSH Past Medical History Medical History (Updated 03/25/22 @ 00:53 by Zuleyma Campbell NP) Arm fracture, left Bronchitis Elevated cholesterol Hypertension Surgical History Surgical History (Updated 03/24/22 @ 12:01 by Zuleyma Campbell NP) H/O inguinal hernia repair Family History Family History (Updated 03/24/22 @ 12:01 by Zuleyma Campbell NP) Mother Throat cancer Social History Social History Years smoked: 2 Smoking status: Former smoker Tobacco type: pipe Second hand tobacco smoke exposure: Yes Additional smoking assessment comments: smoked a pipe Alcohol intake: current Drinks per week: 3 Substance use: never Substance use type: does not use Spiritual care concerns: No Comments At time of signature, agree with nursing past medical, surgical, social and family history. There is no relevant family history pertinent to the presenting complaint Exam Narrative: GENERAL: ill-appearing, well-nourished,pale and in no acute distress. HEAD: Normocephalic, atraumatic., EYES: PERRLA and EOMI. ENT: Nares clear, no rhinorrhea or epistaxis. Mucous membran
== END 2022-03-24 12:40 | disposition home or self-care (01) ==
PROVIDERS: Emergency Provider Registered Nurse; PCP Internal Medicine
DX: U07.1 COVID-19 (principal); E78.00 Pure hypercholesterolemia, unspecified; I10 Essential (primary) hypertension; Z87.891 Personal history of nicotine dependence
CPT/HCPCS: 71046; 87426; 99213; C9803; G0463

== ENCOUNTER 2025-08-01 19:29 | Inpatient (IN) | payer MEDICARE, OTHER, SELFPAY ==
[2025-08-01] VITALS (21 sets, daily range): BP systolic 127–162; BP diastolic 62–79; PULSE 71–103; RESP 12–34; TEMP 36.9; O2SAT 95–100
--- NOTE | ~2025-08-01 | US_ITS ---
EXAMINATION: US right upper quadrant DATE: 08/02/2025 15:55 INDICATION: Right upper quadrant pain. Distended gallbladder on CT examination. TECHNIQUE: Multiple grayscale and Doppler ultrasound images of the abdomen were obtained. COMPARISON: CTA chest abdomen pelvis dated 08/01/2025. FINDINGS: The gallbladder is mildly distended measuring 42 mm in diameter. No edema gallbladder wall is seen. There is mild diffuse gallbladder wall thickening. Small echogenic foci the gallbladder wall are noted. No mobile stones are seen. Common hepatic duct measures 6 to 7 mm in diameter. No focal lesions of the liver. No free fluid in the upper abdomen. IMPRESSION: 1. No mobile gallstones. Gallbladder is mildly distended in size with thickening of gallbladder wall. Possible small polyps of the wall of the gallbladder. Borderline size of the extrahepatic bile ducts. 2. Please correlate with liver function results. If symptoms warrant further evaluation with MRCP or hepatobiliary nuclear scan may be considered. Reviewed, dictated and finalized at location T. NT SERVICES COORDINATOR IMPRESSION: 1. No mobile gallstones. Gallbladder is mildly distended in size with thickenin g of gallbladder wall. Possible small polyps of the wall of the gallbladder. Migue rderline size of the extrahepatic bile ducts. 2. Please correlate with liver function results. If symptoms warrant further ev aluation with MRCP or hepatobiliary nuclear scan may be considered.
--- NOTE | ~2025-08-01 | CT_ITS ---
CT ABDOMEN AND PELVIS WITHOUT CONTRAST Clinical History: RUQ pain Comparison: CT chest abdomen pelvis 08/01/2025 Right upper quadrant ultrasound 08/02/2025 Nuclear medicine scan same day Technique: Unenhanced axial images lung bases to symphysis pubis Coronal, sagittal reformats CT images acquired with automatic exposure control for dose reduction DLP: 633 mGy-cm Findings: Without intravenous contrast, sensitivity for detecting visceral parenchymal abnormalities decreased. Lung bases: Small right pleural effusion. Scarring. Bibasilar atelectasis. Visualized heart and pericardium: Coronary artery calcification. Liver: Unremarkable. Gallbladder: Wall thickening. Spleen: Unremarkable. Pancreas: Unremarkable. Adrenal glands: Unremarkable. Kidneys: Right kidney- No hydronephrosis. No renal stones. Left kidney- No hydronephrosis. No renal stones. Distal esophagus/stomach: Small hiatal hernia. Small bowel loops: Normal caliber and wall thickness. Small duodenal diverticulum. Colon: Diverticula. Normal caliber and wall thickness. Normal RLQ appendix. Nodes: No enlarged nodes. Peritoneum: No ascites. No free intraperitoneal air. Urinary bladder: Unremarkable. Prostate: Unremarkable. Bones: No acute bony abnormality. Soft tissues: Unremarkable. Unopacified abdominal aorta: No aneurysmal dilatation. Atherosclerotic disease. IMPRESSION: 1. Nonspecific gallbladder wall thickening persists. Cholecystitis not excluded. 2. New small right pleural effusion with bibasilar atelectasis and/or airspace disease 3. Additional findings as above. Reviewed, dictated and finalized at location R. ON BRUSHER ASSEMBLER IMPRESSION: 1. Nonspecific gallbladder wall thickening persists. Cholecystitis not exclude d. 2. New small right pleural effusion with bibasilar atelectasis and/or airspace disease 3. Additional findings as above.
--- NOTE | ~2025-08-01 | NM_ITS ---
Nuclear hepatobiliary scan Procedure: Hepatobiliary scan performed following IV administration 4.4 mCi Tc 99m Choletec. At 60 minutes 1.7 mcg CCK administered IV for evaluation of gallbladder ejection fraction. Indication: Ultrasound dated 08/02/2025 Comparison: Ultrasound dated 08/02/2025 Findings: There is normal radiotracer uptake in the liver parenchyma with prompt excretion into the biliary tract. Gallbladder visualized at 55 minutes. Small bowel visualized at 15 minutes. Gallbladder ejection fraction measures 12 %. (Normal is considered 10-90%, but most patients with gallbladder dysfunction have GBEF of less than 35%) Impression: 1: Low gallbladder ejection fraction measuring 12%. Low GBEF is associated with gallbladder dysfunction, although not specific for acute or chronic cholecystitis. Reviewed, dictated and finalized at location O. TECH Impression: 1: Low gallbladder ejection fraction measuring 12%. Low GBEF is associated wit h gallbladder dysfunction, although not specific for acute or chronic cholecyst itis.
--- NOTE | ~2025-08-01 | CT_ITS ---
EXAMINATION: CTA chest abdomen pelvis DATE: 08/01/2025 20:17 INDICATION: Abdominal pain and chest pain. TECHNIQUE: Computed tomographic angiography (CTA) of the chest, abdomen, and pelvis was performed with 100 mL Omnipaque-350 intravenous contrast. Automated exposure control and iterative reconstruction technique were employed. The dose- length product was 1053.60 mGy-cm. Maximum intensity projection 3D- reconstructions of the aorta and other arteries were constructed by the technologist on a separate workstation. COMPARISON: CT abdomen and pelvis 01/01/2022 FINDINGS: CHEST CTA: The lungs demonstrate mild atelectasis. No pleural effusion. There is a nodules in the thyroid measuring up to 1.3 cm, likely not clinically significant. The heart size is normal. There are coronary artery calcifications. No pericardial effusion. There is an electronic implant in right ventricle of the heart. There is fluid in the esophagus. There is a small sliding hiatal hernia. There is no pulmonary embolus. There is mild aortic atherosclerosis. There are bridging endplate osteophytes at multiple levels in the spine, consistent with diffuse idiopathic skeletal hyperostosis (DISH). ABDOMEN AND PELVIS CTA: The liver is normal. There are 10 mm and 8 mm hyperenhancing masses in the spleen, likely hemangiomas or hamartomas. The gallbladder is distended. The pancreas, adrenal glands, and kidneys are normal. The prostate is mildly enlarged. There is diverticulosis of the colon without evidence of diverticulit is. There are no dilated loops of bowel. The appendix is normal. There are no pathologically enlarged lymph nodes. There is no free intraperitoneal fluid. There are changes of left inguinal hernia repair. There is no significant stenosis of celiac axis, superior mesenteric artery, the renal arteries, or inferior mesenteric artery. There is mild lumbar spondylosis. IMPRESSION: 1. Small sliding hiatal hernia. Reviewed, dictated and finalized at location E. F TECHNOLOGIST
--- NOTE | 2025-08-01 19:35 | ECG_ITS ---
Test Date: 2025-08-01 19:36:53 Measurements Intervals [place] Rate: 97 P: 0 ME: 0 QRS: -69 QRSD: 175 T: 79 QT: 421 QTc: 536 Interpretive Statements ELECTRONIC VENTRICULAR PACEMAKER ABNORMAL RHYTHM ECG No previous ECG available for comparison Electronically Signed On 08-01-2025 20:00:41 [employer] by Domingo Bauer M.D.
[2025-08-01] MEDS: ONDANSETRON INJ 4 MG/2 ML VIAL (19:50)
--- NOTE | 2025-08-01 19:53 | ED.ABDPAIN ---
HPI - Abdominal Pain General Chief Complaint: Abdominal Pain Stated Complaint: abd pain Time Seen by Provider: 08/01/25 19:39 History of Present Illness HPI narrative: 80-year-old male with a past medical history including hypertension, symptomatic bradycardia status post pacemaker insertion about 1 month prior at [facility]. Patient presents to the emergency department today with severe upper abdominal pain radiating into his epigastric region and now into his chest. Patient thought he just ate something wrong and tried some Pepto-Bismol and Pepcid at home with no relief. Patient is acutely uncomfortable and writhing. Patient was given fentanyl EN route by EMS with minimal improvement. He did have a right femoral artery puncture where they inserted the leave this pacemaker into his chest. Patient does not have a groin hematoma in this area and has been changing the bandage just since. Denies any back pain, fever, chills but is endorsing new onset nausea vomiting since arrival to the ED in addition to his pain that is now radiating. No weakness or numbness in his extremities. No discoloration his feet or legs. Prior surgical history with hernia repairs. Related Data Home Medications ?Medication ?Instructions ?Recorded ?Confirmed ?Last Taken ?Type aspirin 81 mg tablet,delayed 81 mg PO HS 01/01/22 08/02/25 Unknown History release ciclopirox 8 % topical solution 1 applic topical DAILY 01/01/22 08/02/25 Unknown History felodipine 5 mg tablet,extended 5 mg PO DAILY 01/01/22 08/02/25 Unknown History release 24 hr fluticasone propionate 50 2 spray intranasal DAILY PRN 01/01/22 08/02/25 Unknown History mcg/actuation nasal Allergy Symptoms spray,suspension lisinopril 40 mg tablet 40 mg PO DAILY 01/01/22 08/02/25 Unknown History melatonin 3 mg tablet 3 mg PO HS 01/01/22 08/02/25 Unknown History simvastatin 20 mg tablet 20 mg PO HS 01/01/22 08/02/25 Unknown History eszopiclone 2 mg tablet 2 mg PO HS 08/02/25 08/02/25 Unknown History hydrochlorothiazide 12.5 mg tablet 12.5 mg PO DAILY 08/02/25 08/02/25 Unknown History Allergies Allergy/AdvReac Type Severity Reaction Status Date / Time No Known Allergies Allergy Unknown Verified 08/02/25 01:29 Review of Systems Review of Systems: as reviewed above in HPI All systems reviewed & are unremarkable except as noted in HPI and below FORMERLY [facility], [facility] Past Medical History Medical History (Updated 08/02/25 @ 03:21 by Mat Hutton MD) Schatzki ring of distal esophagus (2021) Aortic stenosis Arm fracture, left Bronchitis Elevated cholesterol Hypertension Surgical History Surgical History (Updated 08/02/25 @ 01:09 by Roxy Arriaza DO) 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) Due to symptomatic bradycardia History of esophagogastroduodenoscopy (EGD) (12/2021) H/O inguinal hernia repair Family History Family History (Updated 08/02/25 @ 01:12 by Lopez Herman RN) Mother Throat cancer Sibling Myocardial infarction Social History Social History (Updated 08/02/25 @ 01:10 by Roxy Arriaza DO) Social History: Code status: Surrogate decision maker: Graciela (spouse) Years smoked: 2 Smoking status: Former smoker Tobacco type: pipe Second hand tobacco smoke exposure: Yes Additional smoking assessment comments: smoked a pipe Alcohol intake: current Drinks per week: 3 Substance use: never Substance use type: does not use Lack of Transportation: No Lack of Food: Never True Current Housing: I Have Housing Concerned About Future Housing: No Difficulty Paying Gas/Electric Bills: No Difficulty Paying for Meds: No Currently Unemployed: No Education: Bachelor's Degree Difficulty w/ Childcare or Family Care: No Spiritual care concerns: No Exam Narrative: GENERAL: acutely uncomfortable and writhing in pain. HEAD: [Normocephalic, atraumatic.] EYES: [PERRLA and EOMI.] ENT: Nares clear, no rhinorrhea or epistaxis. Mucous membranes moist. NECK: Supple. CHEST: [Clear to auscultation. No respiratory distress.] HEART: [Regular rate and rhythm]. No murmur heard. [Normal peripheral pulses.] ABDOMEN: Soft and nondistended, tender in the midline abdomen near the umbilicus and epigastrium. No overlying bruising or discoloration. No groin hematoma is evident, right femoral puncture site with bandage clean dry and intact. EXTREMITIES: Normal range of motion. [No edema.] SKIN: Warm, dry, no rash. NEURO: [No focal deficits]. Alert and oriented [x3.] PSYCH: [Normal mood and affect.] Course Vital Signs Vital signs: Vital Signs Temperature 36.9 C 08/01/25 19:27 Pulse Rate 71 08/01/25 19:27 Respiratory Rate 25 H 08/01/25 19:27 Blood Pressure 138/79 08/01/25 19:27 Pulse Oximetry 100 08/01/25 19:27 Oxygen Delivery Room Air 08/01/25 19:27 Temperature 37.2 C 08/02/25 01:14 Pulse Rate 76 08/02/25 01:14 Respiratory Rate 18 08/02/25 01:14 Blood Pressure 119/52 L 08/02/25 01:14 Pulse Oximetry 96 08/02/25 01:14 Oxygen Delivery Nasal Cannula 08/01/25 20:40 Oxygen Flow Rate 1 08/01/25 20:40 MDM - Abdominal Pain MDM Narrative Medical decision making narrative: 80-year-old male with a past medical history including hypertension, symptomatic bradycardia status post pacemaker insertion about 1 month prior at [facility]. Patient presents to the emergency department today with severe upper abdominal pain radiating into his epigastric region and now into his chest. Patient thought he just ate something wrong and tried some Pepto-Bismol and Pepcid at home with no relief. Patient is acutely uncomfortable and writhing. Patient was given fentanyl EN route by EMS with minimal improvement. He did have a right femoral artery puncture where they inserted the leave this pacemaker into his chest. Patient does not have a groin hematoma in this area and has been changing the bandage just since. Denies any back pain, fever, chills but is endorsing new onset nausea vomiting since arrival to the ED in addition to his pain that is now radiating. No weakness or numbness in his extremities. No discoloration his feet or legs. Prior surgical history with hernia repairs. Patient is rather uncomfortable appearing and requiring additional doses of analgesia medications despite fentanyl. He has a prior femoral artery puncture site on the right side from the procedure last month but no obvious hematoma formation or any skin discoloration. He is tender in the midline abdomen going towards his epigastrium. Suspicion raised for vascular anomaly or vascular process such as dissection or aneurysm formation status post catheterization and pacemaker surgery. Intra-abdominal infection possible, bowel obstruction possible as he has a history of hernia repairs. He is saturating 100% on room air and afebrile. Tachypneic from pain, pulse of 70 to 80 and paced rhythm. Normal blood pressure. Cardiac workup underway with lactic acid drawn and CT angiography emergently for ruling out vascular causes of injury. Patient re-evaluated and still writhing in pain. He was given morphine and Valium with some improvement. CT scan was independently reviewed and I do not appreciate any dissections or aneurysms, thrombosis. CT read by radiology shows no acute vascular anomaly in the chest abdomen or pelvis. No obstruction in the abdomen but he does have a largely dilated thoracic esophagus and distal hiatal hernia with slight wall thickening suggestive of achalasia versus outlet obstruction. He is nauseous but has not vomited. No signs of aspiration. No lobar pneumonia pleural effusions or pneumothorax. Patient felt better upon re-evaluation but still having 2/10 pain and points towards epigastrium which is steaming cabinet tender. Discussed the case with Gastroenterology Dr. Feliz regarding the hiatal hernia versus achalasia versus distal esophageal obstruction. Patient will go for endoscopy tomorrow morning. Patient will be made NPO. Patient does have an elevated lactic acid of 2.6, will recheck after resuscitation. Troponin negative. Electrolytes largely unremarkable. Normal LFTs. Went and discussed with patient and family about any potential previous history of hiatal hernia or GI issues and he does state that 5 or 6 years ago he had esophagitis were pill was stuck needing endoscopy for retrieval. I did review the EGD report from that time and he had gastritis and Schatzki ring at the GE junction and they were able to break the fibrotic tissue at that time. This could be a recurrence of that finding or new process. Patient will be admitted to the hospitalist service for GI tomorrow morning and pain control. Dr. Arriaza accepted patient after discussion. Medical Records Attestation: I reviewed the patient's medical records. Lab Data Attestation: I reviewed the patient's lab results. 08/01/25 20:29 08/01/25 20:29 Labs: Lab Results 08/01/25 08/01/25 Range/Units 20:29 21:52 WBC 9.0 (4.5-10.0) K/mm3 RBC 5.01 (4.6-6.20) M/mm3 Hgb 15.1 (14.0-18.0) g/dL Hct 43.2 (42.0-52.0) % MCV 86.2 (80-100) fl MCH 30.1 (26-34) pg MCHC 35.0 (32-36) g/dl RDW 12.8 (11.5-14.5) % Plt Count 162 (150-375) k/mm3 MPV 10.5 H (7.4-10.4) fl Immature Gran % (Auto) 0.2 (0-0.5) % Neut % (Auto) 80.1 H (45.5-73.1) % Lymph % (Auto) 11.9 L (18.3-44.2) % [place] % (Auto) 6.5 (2.6-8.5) % Eos % (Auto) 1.1 (0-4.4) % Baso % (Auto) 0.2 (0.2-1.2) % Lymph # (Auto) 1.07 (0.9-3.2) K/mm3 [place] # (Auto) 0.6 (0.1-0.6) K/mm3 Eos # (Auto) 0.1 (0-0.3) K/mm3 Baso # (Auto) 0.0 (0.0-0.1) K/mm3 Abs Immat Gran (auto) 0.02 (0.00-0.031) K/mm3 Absolute Neuts (auto) 7.2 H (1.3-6.7) K/mm3 Absolute Nucleated RBC 0.000 (0.0-0.012) K/mm3 Nucleated RBC % 0.0 (0.0-0.2) % Sodium 133 L (137-145) mmol/L Potassium 3.8 (3.4-5.0) mmol/L Chloride 105 (98-107) mmol/L Carbon Dioxide 18 L (22-30) mmol/L Anion Gap 10 (4-12) mmol/L BUN 29 H (9-20) mg/dL Creatinine 1.25 (0.7-1.3) mg/dL Estim Creat Clear Calc 45 ml/min Estimated GFR 55 L (59 - ) Glucose 123 H (65-110) mg/dL Lactic Acid 2.6 H (0.7-2.0) mmol/L Calcium 9.7 (8.4-10.2) mg/dL Total Bilirubin 0.9 (0.2-1.3) mg/dL AST 33 (17-59) U/L ALT 25 (6-50) U/L Alkaline Phosphatase 84 (38-126) U/L Troponin I < 0.012 (0.000-0.034) ng/mL Total Protein 6.8 (6.3-8.2) g/dL Albumin 4.2 (3.5-5.1) g/dL Lipase 139 (23-300) U/L Urine Color Yellow (Yellow) Urine Appearance Clear (Clear) Urine pH 8.0 (5.0-9.0) Ur Specific [place] > 1.045 H (1.001-1.035) Urine Protein Negative (Negative) mg/dL Urine Glucose (UA) Negative (Negative) mg/dL Urine Ketones 1+ H (Negative) mg/dL Ur Blood (Man) Negative (Negative) Urine Nitrate Negative (Negative) Urine Bilirubin Negative (Negative) Urine Urobilinogen 1.0 (<2.0) mg/dL Leukocyte Esterase Rfl Negative (Negative) BECKY/UL Imaging Data Attestation: I personally reviewed and interpreted this imaging study as follows: My impression: No dissection or aneurysm Discharge Plan Discharge Clinical Impression: Epigastric abdominal pain, Non-cardiac chest pain, Hiatal hernia, Acute obstruction of esophagus, Schatzki ring of distal esophagus Patient Disposition: Still a Patient Condition: Stable
[2025-08-01] MEDS: fentaNYL CITRATE INJ (*CRX) 100 MCG/2 ML VIAL 150 MCG IV PUSH (19:55)
[2025-08-01 20:36] LABS: Hematocrit 43.2 % (42.0-52.0); Hemoglobin 15.1 g/dL (14.0-18.0); Immature Granulocyte Percent A 0.2 % (0-0.5); Lymphocytes Absolute Auto 1.07 K/mm3 (0.9-3.2); Mean Corpuscular HGB Conc 35.0 g/dl (32-36); Mean Corpuscular Hemoglobin 30.1 pg (26-34); Mean Corpuscular Volume 86.2 fl (80-100); Nucleated Red Blood Cells Absolute Auto 0.000 K/mm3 (0.0-0.012); Nucleated Red Blood Cells Perc 0.0 % (0.0-0.2); Platelet Count Result 162 k/mm3 (150-375); Red Blood Count 5.01 M/mm3 (4.6-6.20); White Blood Count 9.0 K/mm3 (4.5-10.0)
--- NOTE | 2025-08-01 20:36 | PC.NURSE ---
Patient calls this RN into room, states I feel like I can't get enough oxygen. Patient noted to by hyperventilating and instructed on slowing his breathing, RA sat is 99-100%. Patient placed on 1L via NC for comfort. ERP notified and orders placed for medications.
[2025-08-01 20:47] LABS: Alanine Aminotransferase 25 U/L (6-50); Albumin Level 4.2 g/dL (3.5-5.1); Alkaline Phosphatase 84 U/L (38-126); Anion Gap 10 mmol/L (4-12); Aspartate Amino Transferase 33 U/L (17-59); Bilirubin,Total 0.9 mg/dL (0.2-1.3); Blood Urea Nitrogen 29 mg/dL (9-20); Calcium 9.7 mg/dL (8.4-10.2); Carbon Dioxide 18 mmol/L (22-30); Chloride 105 mmol/L (98-107); Estimated CRCL calculation 45 ml/min; Estimated Glomerular Filt Rate 55; Glucose 123 mg/dL (65-110); Lipase 139 U/L (23-300); Potassium 3.8 mmol/L (3.4-5.0); Sodium 133 mmol/L (137-145); Total Protein 6.8 g/dL (6.3-8.2)
[2025-08-01 20:59] LABS: Troponin I < 0.012 ng/mL (0.000-0.034)
[2025-08-01] MEDS: diazePAM INJ (*CRX) 10 MG/2 ML SYRINGE 2.5 MG IV PUSH (21:11)
[2025-08-01 21:59] LABS: Add Urine Microscopic? NO; Appearance Urine Clear (Clear); Glucose Urine UA Negative (Negative); Leukocyte Esterase Ur Negative LEU/UL (Negative); Nitrate Urine Negative (Negative); Specific Grav Ur > 1.045 (1.001-1.035)
[2025-08-01] MEDS: PANTOPRAZOLE SODIUM IV 40 MG VIAL IV PUSH (22:38)
[2025-08-01] MEDS: MORPHINE SULFATE (*CRX) 4 MG/ML INJ 2 MG IV PUSH (22:39)
[2025-08-01] MEDS: LACTATED RINGERS 1,000 ML 999 ML IV CONT ×2 (22:39→23:23)
--- NOTE | 2025-08-01 23:31 | WPCEDHO ---
ED Hand Off Checklist All vitals saved:yes IV Site documented:yes All med administrations documented:yes Triage Note Triage Note Patient arrives to room via EMS 08/01/25 19:27 from home with cc of abd pain that started at 1730 today. Patient took pepto and pepcid with no relief. Patient was given 60mcg of fentanyl en route by EMS. Patient states pain did not initially radiate but does now radiate up into his chest. Patient denies any n/v or constipation. Patient states the pain is close to his belly button and radiates up. Patient also has hx of low HR and has a demand pacer that is not capturing all the time. Patient arrives groaning and hyperventilating during assessment. Allergies No Known Allergies Allergy (Unknown, Verified 08/01/25 19:36) Family History (Last Reviewed 08/01/25 @ 19:55 by Mat Hutton MD) Mother Throat cancer Active Medications including assessments/comments Lactated Ringer's (Lr - Lactated Ringers Iv) 1,000 mls @ 999 mls/hr IV CONT .Q1H1M STA Stop: 08/01/25 23:46 Last Admin: 08/01/25 23:23 Dose: 999 mls/hr Documented By: CASSIUS Infusion/Titration Document 08/01/25 23:23 CASSIUS (Rec: 08/01/25 23:23 CASSIUS [id number]) Intake IV Site Peripheral Access Left Antecubital Container Volume 1,000 Waste Amount 0 Dosing Infusion Rate 999 Cumulative Dose Not Applicable Increase/Decrease Started Elapsed Time Elapsed Time ( 0m minutes) Administered/Completed Medications Discontinued Medications Diazepam (Diazepam Inj (*Crx) 10 Mg/2 Ml Syringe) 2.5 mg IV PUSH ONCE ONE Stop: 08/01/25 20:36 Last Admin: 08/01/25 21:11 Dose: 2.5 mg Documented By: CASSIUS Fentanyl Citrate (Fentanyl Citrate Inj (*Crx) 100 Mcg/2 Ml Vial) 150 mcg IV PUSH ONCE STA Stop: 08/01/25 19:51 Last Admin: 08/01/25 19:55 Dose: 150 mcg Documented By: CASSIUS Lactated Ringer's (Lr - Lactated Ringers Iv) 1,000 mls @ 999 mls/hr IV CONT .Q1H1M STA Stop: 08/01/25 23:13 Last Admin: 08/01/25 22:39 Dose: 999 mls/hr Documented By: CASSIUS Morphine Sulfate (Morphine Sulfate (*Crx) 4 Mg/Ml Inj) 2 mg IV PUSH ONCE ONE Stop: 08/01/25 22:04 Last Admin: 08/01/25 22:39 Dose: 2 mg Documented By: CASSIUS Ondansetron HCl (Ondansetron Inj 4 Mg/2 Ml Vial) Confirm Administered Dose 4 mg .ROUTE .STK-MED ONE Stop: 08/01/25 19:46 Last Admin: 08/01/25 19:50 Dose: 4 mg Documented By: CASSIUS Pantoprazole Sodium (Pantoprazole Sodium Iv 40 Mg Vial) 40 mg IV PUSH ONCE STA Stop: 08/01/25 22:04 Last Admin: 08/01/25 22:38 Dose: 40 mg Documented By: CASSIUS Notes 08/01/25 20:36 Nurse Note by Susi Alexander Patient calls this RN into room, states I feel like I can't get enough oxygen. Patient noted to by hyperventilating and instructed on slowing his breathing, RA sat is 99-100%. Patient placed on 1L via NC for comfort. ERP notified and orders placed for medications. Initialized on 08/01/25 20:36 - END OF NOTE Interventions/Assessments IV / Saline Lock, Insert Start: 08/01/25 19:35 Freq: STAT Status: Active Protocol: Document 08/01/25 20:27 [facility] (Rec: 08/01/25 20:27 [facility] [id number]) IV Assessment Peripheral Access Left Antecubital IV Catheter Access Initiated IV Insertion Date 08/01/25 IV Insertion Time 20:27 Catheter Gauge 18 IV Insertion 1 Attempts IV Site Assessment WNL IV Care and WNL Maintenance Peripheral Access Left Lateral Wrist IV Catheter Access Initiated Before Arrival IV Insertion Date 08/01/25 Catheter Gauge 20 IV Site Assessment WNL IV Care and WNL Maintenance PA: Gastrointestinal Assessment Start: 08/01/25 19:19 Freq: Status: Active Protocol: Document 08/01/25 19:41 [facility]SIUS (Rec: 08/01/25 19:43 CASSIUS [id number]) GI Assessment Gastrointestinal Belching,Heartburn,Nausea,Pain Symptoms Description Soft,Guarding,Tender Pattern Normal Flatus Absent Stool Loose Characterisitics Stool Size Large Nausea/Vomiting Assessment Nausea Frequency Intermittent Last Vital Signs Temperature 98.5 F 11/23/25 19:27 Pulse Rate 85 08/01/25 22:15 Respiratory Rate 12 08/01/25 22:15 Pulse Oximetry 99 08/01/25 22:15 Blood Pressure 127/62 08/01/25 22:07 Blood Pressure Mean 82 08/01/25 22:07 Blood Pressure Position Sitting 08/01/25 19:27 Oxygen Delivery Nasal Cannula 08/01/25 20:40 Oxygen Flow Rate 1 08/01/25 20:40 Weight 89.4 kg 08/01/25 19:27 Last Result - Abnormals Only MPV 10.5 fl (7.4-10.4) H 08/01/25 20:29 Neut % (Auto) 80.1 % (45.5-73.1) H 08/01/25 20:29 Lymph % (Auto) 11.9 % (18.3-44.2) L 08/01/25 20:29 Absolute Neuts (auto) 7.2 K/mm3 (1.3-6.7) H 08/01/25 20:29 Sodium 133 mmol/L (137-145) L 08/01/25 20:29 Carbon Dioxide 18 mmol/L (22-30) L 08/01/25 20:29 BUN 29 mg/dL (9-20) H 08/01/25 20:29 Estimated GFR 55 (59-) L 08/01/25 20:29 Glucose 123 mg/dL (65-110) H 08/01/25 20:29 Lactic Acid 2.6 mmol/L (0.7-2.0) H 08/01/25 20:29 Ur Specific [place] > 1.045 (1.001-1.035) H 08/01/25 21:52 Urine Ketones 1+ mg/dL (Negative) H 08/01/25 21:52 Most Recent Suicide Severity Rating Suicide Severity Rating NO RISK INDICATED 08/01/25 19:27
[2025-08-02] VITALS (12 sets, daily range): BP systolic 85–142; BP diastolic 39–68; PULSE 65–88; RESP 16–20; TEMP 35.8–37.2; O2SAT 92–98; BMI 26.4; BMI 26.2
[2025-08-02] MEDS: diazePAM INJ (*CRX) 10 MG/2 ML SYRINGE 2.5 MG IV PUSH (00:34)
[2025-08-02] MEDS: LACTATED RINGERS 1,000 ML 125 ML IV CONT ×3 (00:37→17:23)
--- NOTE | 2025-08-02 00:56 | PM.IMHP ---
H&P: HPI History of Present Illness Date/Time: 08/02/25 00:56 Chief Complaint: Severe abdominal pain that just started tonight Narrative: 80-year-old male with a past medical history in aortic stenosis, essential hypertension, symptomatic bradycardia status post insertion leadless pacemaker June 2025, GERD/gastritis and prior Schatzki ring in 2021 who presented to the ER via EMS from home due to sudden onset of severe abdominal pain at 17:30 on the . The pain started about an hour before he called EMS. He did try to take Pepcid and Pepto-Bismol without relief in symptoms. The pain was generalized across the abdomen as well he reports that his abdomen has been more loaded. He has been having intermittent sharp stabbing pain in the right quadrant. Patient was initially in the epigastric region but then radiated up into the chest. Pain was severe 8/10 in intensity and he was restless and in distress on the stretcher when he arrived to the ER despite receiving 60 mcg of fentanyl EN route. EMS noted that the patient had what felt like a pulsatile mass in the epigastric region. He had rapid shallow respirations on arrival to the ER but denied shortness of breath. He reported that his breathing was only because of his abdominal discomfort. He reports his last bowel movement was on the morning of the . He denies any fever chills and has been afebrile since arrival to the hospital. He denies any changes in urinary frequency or urgency. He denies sensation of incomplete bladder emptying. He had a pacemaker placed last month. He has not had any unusual bruising bleeding or pain to the insertion site. His EKG in the ER demonstrated a paced rhythm. Pacemaker is firing appropriately. He denies any shortness of breath, lightheadedness, or syncope. Review of Systems Review of Systems: 12 systems were reviewed with pertinent positives and negatives per HPI. Except as documented in the HPI, all other systems were reviewed and are negative. Although review of systems somewhat limited as the patient was in significant amount of pain and distress and did not want to answer complete review of system. [facility] Past Medical History Medical History Schatzki ring of distal esophagus (2021) Aortic stenosis Arm fracture, left Bronchitis Elevated cholesterol Hypertension Surgical History Surgical History 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) Due to symptomatic bradycardia History of esophagogastroduodenoscopy (EGD) (12/2021) H/O inguinal hernia repair Family History Family History Mother Throat cancer Sibling Myocardial infarction Social History Social History (Updated 08/02/25 @ 20:37 by Roxy Arriaza DO) Social History: Code status: Surrogate decision maker: Graciela (spouse) Years smoked: 2 Smoking status: Former smoker Tobacco type: pipe Second hand tobacco smoke exposure: Yes Additional smoking assessment comments: smoked a pipe Alcohol intake: current Drinks per week: 3 Substance use: never Substance use type: does not use Lack of Transportation: No Lack of Food: Never True Current Housing: I Have Housing Concerned About Future Housing: No Difficulty Paying Gas/Electric Bills: No Difficulty Paying for Meds: No Currently Unemployed: No Education: Bachelor's Degree Difficulty w/ Childcare or Family Care: No Additional living arrangements comments: He lives with his of 21 years. Occupation/Education: retired Spiritual care concerns: No Meds Home Medications and Allergies Home Medications ?Medication ?Instructions ?Recorded ?Confirmed ?Type aspirin 81 mg tablet,delayed 81 mg PO HS 01/01/22 08/02/25 History release ciclopirox 8 % topical solution 1 applic topical DAILY 01/01/22 08/02/25 History felodipine 5 mg tablet,extended 5 mg PO DAILY 01/01/22 08/02/25 History release 24 hr fluticasone propionate 50 2 spray intranasal DAILY PRN 01/01/22 08/02/25 History mcg/actuation nasal Allergy Symptoms spray,suspension lisinopril 40 mg tablet 40 mg PO DAILY 01/01/22 08/02/25 History melatonin 3 mg tablet 3 mg PO HS 01/01/22 08/02/25 History simvastatin 20 mg tablet 20 mg PO HS 01/01/22 08/02/25 History eszopiclone 2 mg tablet 2 mg PO HS 08/02/25 08/02/25 History hydrochlorothiazide 12.5 mg tablet 12.5 mg PO DAILY 08/02/25 08/02/25 History Allergies Allergy/AdvReac Type Severity Reaction Status Date / Time No Known Allergies Allergy Unknown Verified 08/02/25 01:29 Vital Signs Vital Signs - 24 hr 08/01/25 19:27 08/01/25 19:33 08/01/25 19:35 Temperature 98.5 F Pulse Rate 71 83 77 Respiratory Rate 25 H 33 H 34 H Blood Pressure 138/79 138/79 Pulse Oximetry 100 100 100 Oxygen Delivery Room Air Oxygen Flow Rate 08/01/25 19:45 08/01/25 20:00 08/01/25 20:16 Temperature Pulse Rate 90 101 H 95 Respiratory Rate 25 H 25 H 16 Blood Pressure 162/74 H Pulse Oximetry 100 98 98 Oxygen Delivery Oxygen Flow Rate 08/01/25 20:17 08/01/25 20:30 08/01/25 20:31 Temperature Pulse Rate 90 100 98 Respiratory Rate 19 24 H 28 H Blood Pressure 139/67 134/67 Pulse Oximetry 98 99 99 Oxygen Delivery Oxygen Flow Rate 08/01/25 20:40 08/01/25 20:45 08/01/25 21:00 Temperature Pulse Rate 90 99 Respiratory Rate 19 26 H Blood Pressure Pulse Oximetry 100 99 100 Oxygen Delivery Nasal Cannula Oxygen Flow Rate 1 08/01/25 21:01 08/01/25 21:15 08/01/25 21:30 Temperature Pulse Rate 92 95 100 Respiratory Rate 22 H 15 16 Blood Pressure 138/64 134/73 Pulse Oximetry 100 96 98 Oxygen Delivery Oxygen Flow Rate 08/01/25 21:31 08/01/25 21:50 08/01/25 22:00 Temperature Pulse Rate 100 91 76 Respiratory Rate 23 H 19 15 Blood Pressure Pulse Oximetry 99 97 98 Oxygen Delivery Oxygen Flow Rate 08/01/25 22:07 08/01/25 22:15 08/01/25 23:53 Temperature Pulse Rate 92 85 103 H Respiratory Rate 14 12 20 Blood Pressure 127/62 130/70 Pulse Oximetry 98 99 95 Oxygen Delivery Oxygen Flow Rate Exam Narrative: Weight 89.4 kg BMI 26.7 Const: Other: Patient is in obvious pain, lying in the bed with the head of bed at 30?, the patient is grimacing in when sitting in holding his body still HENMT: Other: Mucous membranes are tacky, no oral pharyngeal erythema, good dentition, head is normocephalic atraumatic Eyes: Other: Pupils are equal and reactive with bilateral lens implants noted, no scleral icterus Neck: Other: No lymphadenopathy trachea midline Resp: Other: Clear to auscultation bilaterally, rapid shallow respirations, no accessory muscle use Cardio: Other: Regular rate, 2+ bilateral radial pedal pulses, 2/6 systolic murmur, no JVD GI: Other: Abdomen is overtly distended, tight, diffusely tender to touch with more severe pain localizing in the right upper quadrant, tympanic on percussion, no rebound tenderness, normoactive bowel sounds Skin: Other: No pallor, non jaundice Neuro: Other: Alert oriented, speech is clear, no facial asymmetry, no localizing neurologic deficits noted during the course of conversation Extrem: Other: No clubbing, cyanosis or edema, moves all extremities equally Psych: Other: Patient is in overt pain but has appropriate affect and is cooperative, judgment and insight intact H&P: Results Labs Labs: Laboratory Tests 08/01/25 20:29 08/01/25 20:29 08/01/25 08/01/25 08/01/25 20: 21:52 23:08 WBC 9.0 RBC 5.01 Hgb 15.1 Hct 43.2 MCV 86.2 MCH 30.1 MCHC 35.0 RDW 12.8 Plt Count 162 MPV 10.5 H Immature Gran % (Auto) 0.2 Neut % (Auto) 80.1 H Lymph % (Auto) 11.9 L [place] % (Auto) 6.5 Eos % (Auto) 1.1 Baso % (Auto) 0.2 Lymph # (Auto) 1.07 [place] # (Auto) 0.6 Eos # (Auto) 0.1 Baso # (Auto) 0.0 Abs Immat Gran (auto) 0.02 Absolute Neuts (auto) 7.2 H Absolute Nucleated RBC 0.000 Nucleated RBC % 0.0 Sodium 133 L Potassium 3.8 Chloride 105 Carbon Dioxide 18 L Anion Gap 10 BUN 29 H Creatinine 1.25 Estim Creat Clear Calc 45 Estimated GFR 55 L Glucose 123 H Lactic Acid 2.6 H 1.1 Calcium 9.7 Total Bilirubin 0.9 AST 33 ALT 25 Alkaline Phosphatase 84 Troponin I < 0.012 Total Protein 6.8 Albumin 4.2 Lipase 139 Urine Color Yellow Urine Appearance Clear Urine pH 8.0 Ur Specific [place] > 1.045 H Urine Protein Negative Urine Glucose (UA) Negative Urine Ketones 1+ H Ur Blood (Man) Negative Urine Nitrate Negative Urine Bilirubin Negative Urine Urobilinogen 1.0 Leukocyte Esterase Rfl Negative CT of the chest abdomen pelvis: On my interpretation no obvious large pulmonary embolism or acute lung pathology with no evidence of bowel obstruction. Per stat read interpretation there is a dilated thoracic esophagus and distal hiatal hernia with slight wall thickening suggested of achalasia versus outlet obstruction. No evidence of small-bowel obstruction. EKG:Test Date: 2025-08-01 19:36:53 Measurements Intervals [place] Rate: 97 P: 0 NV: 0 QRS: -69 QRSD: 175 T: 79 QT: 421 QTc: 536 Interpretive Statements ELECTRONIC VENTRICULAR PACEMAKER ABNORMAL RHYTHM ECG No previous ECG available for comparison (at the time of my review no further interpretation possible. QTC 536) Assessment and Plan Assessment and plan (1) Acute obstruction of esophagus: Code(s): K22.2 - Esophageal obstruction Status: Acute (2) Hiatal hernia: Code(s): K44.9 - Diaphragmatic hernia without obstruction or gangrene Status: Acute (3) Epigastric abdominal pain: Code(s): R10.13 - Epigastric pain Status: Acute (4) Dehydration with hyponatremia: Code(s): E86.0 - Dehydration; E87.1 - Hypo-osmolality and hyponatremia Status: Acute (5) Non-cardiac chest pain: Code(s): R07.89 - Other chest pain Status: Acute (6) Schatzki ring of distal esophagus: Onset Date: 2021 Code(s): K22.2 - Esophageal obstruction Status: Acute Plan Patient has a dilated esophagus with evidence of obstruction at the GE junction likely due to stricture. Gastroenterology has been consulted patient is NPO. Patient pain was improved with morphine in the ER but when I arrived at bedside he was in overt discomfort. Will increase patient's pain medications of 4 mg of morphine q.3 hours. Will provide medications for nausea. Patient did receive 1 dose of Protonix in the ER will start the patient on Protonix 40 mg IV b.i.d.. Patient's labs demonstrated hyponatremia and dehydration with concentrated urine specific gravity and elevated BUN from baseline. The patient received 2 L LR in the ER. Will continue LR at 125 mL an hour overnight and then re-evaluate fluid status. Patient was reporting chest pain but clearly pain is due to the above causes and not cardiac related troponin was negative and EKG demonstrated patient baseline paced rhythm. Patient's home lisinopril and hydrochlorothiazide are on hold due to NPO status. Blood pressures are currently normal and stable. Will continue monitor vital signs and will resume home antihypertensives once clinically appropriate. Patient has been admitted as observation status. MEDICAL DECISION MAKING NARRATIVE -Spoke with the ED provider in detail regarding patient's evaluation, workup and management -Patient seen and examined at bedside -Collaborated with patient's nurse at the bedside in detail and addressed all concerns -Labs, electrolytes, radiology, investigations and test results personally reviewed and interpreted unless otherwise specified -ED/Consult/Nursing/Ancilliary notes on the chart reviewed and appreciated -Spoke with patient at bedside and diagnosis and plan of care was discussed. All questions answered. Quality VTE Prophylaxis VTE prophylaxis: mechanical ordered (SCDs) Hospitalist MIPS Advance Care Plan I have confirmed that the patient's Advanced Care Plan is present, code status is documented, or surrogate decision maker is listed in patient medical record.: Yes Medication Reconciliation I have utilized all available resources to obtain, update and review the patients current medications (includes all prescriptions, OTC, herbals, cannabis, and nutritional supplements).: Yes
[2025-08-02] MEDS: MORPHINE SULFATE (*CRX) 4 MG/ML INJ IV PUSH ×2 (04:15→09:23)
--- NOTE | 2025-08-02 08:57 | P.CONGI_ITS ---
Assessment and Plan Assessment and plan (1) Abnormal digestive system diagnostic imaging: Code(s): R93.3 - Abnormal findings on diagnostic imaging of other parts of digestive tract Status: Acute (2) Epigastric abdominal pain: Code(s): R10.13 - Epigastric pain Status: Acute (3) Hiatal hernia: Code(s): K44.9 - Diaphragmatic hernia without obstruction or gangrene Status: Acute (4) Schatzki ring of distal esophagus: Onset Date: 2021 Code(s): K22.2 - Esophageal obstruction Status: Acute (5) Gastritis: Qualifiers: Gastritis type: unspecified gastritis Chronicity: chronic Gastritis bleeding: without bleeding Qualified Code(s): K29.50 - Unspecified chronic gastritis without bleeding Code(s): K29.70 - Gastritis, unspecified, without bleeding Status: Acute Plan 1. Abnormal imaging digestive/Reflux/RUQ-Epigastric pain/Hx of Schatzki's ring and gastritis: Last EGD 01/03/2022 at which time he was noted to have gastritis and a Schatzki's ring that was dilated. He has a history of pill esophagitis. Patient states that yesterday he started experiencing a shooting pain in his right upper quadrant and epigastric region that comes intermittently and last for a few seconds. He tried antacids and Pepto-Bismol with no change in symptoms. Prior to admission he was also experiencing intermittent reflux that did not improve with Pepto-Bismol. He was on aspirin 81 mg prior to admission but denies any other NSAID or anticoagulant use. Patient with history of bradycardia and recently had a pacemaker placed June 29, he denies any postop complications. CTA yesterday showed fluid in the esophagus and a small sliding hiatal hernia, patient denies any recent painful or difficult swallowing but admitted to swallowing difficulty in the ER. He denies any increased intestinal gas that may be causing abdominal pain. DDX: Esophageal ring or stricture versus gastric outlet obstruction versus gastritis versus biliary colic * Continue Protonix 40 mg b.i.d. * Keep patient NPO * EGD today * continue supportive care with pain management * Further recommendations to follow endoscopy Thank you very much for allowing me to share in the care of this very nice patient. This report may have been done utilizing a voice recognition system. Attempts have been made to correct errors. However, there may be uncorrected grammatical, spelling, and recognition errors present. GI Consult Note Consult date/time: 08/02/25 08:57 Reason for consult: Achalasia HPI: Diego Ford is a 80 year old male with PMSH Schatzki's home diagnosed in 2021, aortic stenosis, HLD, HTN, bradycardia with recently placed pacemaker (June 2025), and inguinal hernia repair. He presented to the emergency room yesterday with complaints of severe upper abdominal pain. GI has been consulted for achalasia/abnormal imaging digestive. Patient with prior GI history of hiatal hernia, gastritis, Schatzki's ring, and pill esophagitis 5-6 years ago. Patient states that around 530 yesterday he started experiencing acute onset are use RUQ/epigastric pain that he describes as a quick shooting pain that resolves after a few seconds. He tried OTC antacids and Pepto-Bismol without any change in symptoms. He is still having this intermittent pain but states that it has decreased in intensity since admission. He also states that prior to admission he started having reflux symptoms that did not improve with Pepto-Bismol. He is not on any daily antacids or PPI. He is having daily bowel movements that are formed and non urgent. Denies nausea, vomiting, bloating, odynophagia, dysphagia, regurgitation, early satiety, appetite or weight loss. Denies diarrhea, constipation, hematochezia or melena. Patient was on aspirin 81 mg prior to admission but denies any other NSAID or anticoagulant use. Patient's mother had throat cancer but states that she was a long-time smoker. He drinks alcohol on a rare occasional basis and denies any tobacco or marijuana use. ENDOSCOPY HISTORY: EGD: 01/03/[address] David for epigastric pain Findings: A moderate Schatzki's ring was present at the GE junction. The Schatzki's ring appeared at a depth of 40 cm from the incisors. Multiple cold forceps biopsies were taken from the GE junction for pathology. Moderate localized gastritis seen in the antrum. The gastritis had moderate erosive changes. Cold forceps biopsies were taken from the antrum Bx results: ESOPHAGEAL RING; BIOPSY: - BENIGN SQUAMO-COLUMNAR MUCOSA WITH DILATATION OF SUBMUCOSAL CAPILLARIES CONSISTENT WITH CHRONIC ESOPHAGITIS (REFLUX). - NEGATIVE FOR DYSPLASIA OR MALIGNANCY . - NO EOSINOPHILIC OR NEUTROPHILIC INFILTRATES IDENTIFIED. - NO VIRAL INCLUSIONS OR FUNGAL HYPHAE IDENTIFIED COLONOSCOPY: Per patient last colonoscopy 3-4 years ago was normal, endoscopy records not available at today's visit LABS AND STOOL STUDIES: Labs 08/01/2025: WBC 9, Hgb 15, Hct 43, MCV 86, platelets 162 Sodium 133, potassium 3.8, BUN 29, creatinine 1.25, GFR 55, calcium 9.7, lactic acid 1.1 Total bilirubin 0.9, AST 33, ALT 25, Alkaline Phos 84, albumin 4.2, lipase 139 IMAGING: CTA chest/abd/pelvis w/contrast 08/01/2025: FINDINGS: CHEST CTA: The lungs demonstrate mild atelectasis. No pleural effusion. There is a nodules in the thyroid measuring up to 1.3 cm, likely not clinically significant. The heart size is normal. There are coronary artery calcifications. No pericardial effusion. There is an electronic implant in right ventricle of the heart. There is fluid in the esophagus. There is a small sliding hiatal hernia. There is no pulmonary embolus. There is mild aortic atherosclerosis. There are bridging endplate osteophytes at multiple levels in the spine, consistent with diffuse idiopathic skeletal hyperostosis (DISH). ABDOMEN AND PELVIS CTA: The liver is normal. There are 10 mm and 8 mm hyperenhancing masses in the spleen, likely hemangiomas or hamartomas. The gallbladder is distended. The pancreas, adrenal glands, and kidneys are normal. The prostate is mildly enlarged. There is diverticulosis of the colon without evidence of diverticulitis. There are no dilated loops of bowel. The appendix is normal. There are no pathologically enlarged lymph nodes. There is no free intraperitoneal fluid. There are changes of left inguinal hernia repair. There is no significant stenosis of celiac axis, superior mesenteric artery, the renal arteries, or inferior mesenteric artery. There is mild lumbar spondylosis. IMPRESSION: 1. Small sliding hiatal hernia. Review of Systems 2 Constitutional: Constitutional: Reports as per HPI ENT: Reports as per HPI Cardiovascular: Cardiovascular: Reports as per HPI, Denies chest pain, Denies leg edema and Denies dyspnea Comments: recent pacemaker placement 06/29/2025 Respiratory: Respiratory: Denies cough, Denies hemoptysis and Denies dyspnea Gastrointestinal: Gastrointestinal: Reports as per HPI and Reports abdominal pain Musculoskeletal: Musculoskeletal: Reports as per HPI Integumentary/Breasts: Skin/Breast: Reports as per HPI Psychiatric: Psychiatric: Reports as per HPI Endocrine: Endocrine: Reports no additional endocrine complaints Hematologic/Lymphatic: Hematologic/Lymphatic: Reports no additional hematologic/lymphatic complaints [facility] Past Medical History Medical History (Updated 08/02/25 @ 09:59 by Mehnaz Panda APRN) Schatzki ring of distal esophagus (2021) Aortic stenosis Arm fracture, left Bronchitis Elevated cholesterol Hypertension Surgical History Surgical History (Updated 08/02/25 @ 01:09 by Roxy Arriaza DO) 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) Due to symptomatic bradycardia History of esophagogastroduodenoscopy (EGD) (12/2021) H/O inguinal hernia repair Family History Family History (Updated 08/02/25 @ 01:12 by Lopez Herman RN) Mother Throat cancer Sibling Myocardial infarction Social History Social History (Updated 08/02/25 @ 01:10 by Roxy Arriaza DO) Social History: Code status: Surrogate decision maker: Graciela (spouse) Years smoked: 2 Smoking status: Former smoker Tobacco type: pipe Second hand tobacco smoke exposure: Yes Additional smoking assessment comments: smoked a pipe Alcohol intake: current Drinks per week: 3 Substance use: never Substance use type: does not use Lack of Transportation: No Lack of Food: Never True Current Housing: I Have Housing Concerned About Future Housing: No Difficulty Paying Gas/Electric Bills: No Difficulty Paying for Meds: No Currently Unemployed: No Education: Bachelor's Degree Difficulty w/ Childcare or Family Care: No Spiritual care concerns: No Meds Home Medications and Allergies Home Medications ?Medication ?Instructions ?Recorded ?Confirmed ?Type aspirin 81 mg tablet,delayed 81 mg PO HS 01/01/2207/11 History release ciclopirox 8 % topical solution 1 applic topical DAILY 01/01/22 08/02/25 History felodipine 5 mg tablet,extended 5 mg PO DAILY 01/01/22 08/02/25 History release 24 hr fluticasone propionate 50 2 spray intranasal DAILY PRN 01/01/22 08/02/25 History mcg/actuation nasal Allergy Symptoms spray,suspension lisinopril 40 mg tablet 40 mg PO DAILY 01/01/2207/11 History melatonin 3 mg tablet 3 mg PO HS 01/01/22 08/02/25 History simvastatin 20 mg tablet 20 mg PO HS 01/01/22 5 History eszopiclone 2 mg tablet 2 mg PO HS 08/02/25 08/02/25 History hydrochlorothiazide 12.5 mg tablet 12.5 mg PO DAILY 08/02/25 History Allergies Allergy/AdvReac Type Severity Reaction Status Date / Time No Known Allergies Allergy Unknown Verified 08/02/25 01:29 Vital Signs Vital Signs - 24 hr 08/01/25 19:27 08/01/25 19:33 08/01/25 19:35 Temperature 98.5 F Pulse Rate 71 83 77 Respiratory Rate 25 H 33 H 34 H Blood Pressure 138/79 138/79 Pulse Oximetry 100 100 100 Oxygen Delivery Room Air Oxygen Flow Rate 08/01/25 19:45 08/01/25 20:00 08/01/25 20:16 Temperature Pulse Rate 90 101 H 95 Respiratory Rate 25 H 25 H 16 Blood Pressure 162/74 H Pulse Oximetry 100 98 98 Oxygen Delivery Oxygen Flow Rate 08/01/25 20:17 08/01/25 20:30 08/01/25 20:31 Temperature Pulse Rate 90 100 98 Respiratory Rate 19 24 H 28 H Blood Pressure 139/67 134/67 Pulse Oximetry 98 99 99 Oxygen Delivery Oxygen Flow Rate 08/01/25 20:40 08/01/25 20:45 08/01/25 21:00 Temperature Pulse Rate 90 99 Respiratory Rate 19 26 H Blood Pressure Pulse Oximetry 100 99 100 Oxygen Delivery Nasal Cannula Oxygen Flow Rate 1 08/01/25 21:01 08/01/25 21:15 08/01/25 21:30 Temperature Pulse Rate 92 95 100 Respiratory Rate 22 H 15 16 Blood Pressure 138/64 134/73 Pulse Oximetry 100 96 98 Oxygen Delivery Oxygen Flow Rate 08/01/25 21:31 08/01/25 21:50 08/01/25 22:00 Temperature Pulse Rate 100 91 76 Respiratory Rate 23 H 19 15 Blood Pressure Pulse Oximetry 99 97 98 Oxygen Delivery Oxygen Flow Rate 08/01/25 22:07 08/01/25 22:15 08/01/25 23:53 Temperature Pulse Rate 92 85 103 H Respiratory Rate 14 12 20 Blood Pressure 127/62 130/70 Pulse Oximetry 98 99 95 Oxygen Delivery Oxygen Flow Rate 08/02/25 01:14 08/02/25 04:00 08/02/25 06:00 Temperature 99.0 F 98.8 F Pulse Rate 76 75 74 Respiratory Rate 18 16 Blood Pressure 119/52 L 105/49 L Pulse Oximetry 96 93 Oxygen Delivery Oxygen Flow Rate Exam 2 Const: General: cooperative, healthy appearing, no acute distress, well developed and uncomfortable Orientation/consciousness: oriented to person, oriented to place, oriented to time and patient oriented x3 HENMT: Head: normal to inspection, normocephalic and atraumatic Mouth: Yes Normal oral and palatal mucosa present and Yes moist mucous membranes Eyes: General: appearance normal, both eyes and all related structures C onjunctivae: conjunctivae normal Sclera: sclerae normal Pupils: Equal, round and reactive pupils present Neck: Neck: normal visual inspection Chest: Chest palpation & inspection: normal inspection of the chest Resp: Effort & Inspection: normal respiratory effort and able to speak in complete sentences Auscultation: clear to auscultation bilaterally Cardio: Jugular venous distension: no JVD Rate: regular rate Rhythm: r egular rhythm Heart sounds: S1 normal heart sound present and S2 normal heart sound present GI: Inspection: normal to inspection GI Palp: Yes Soft to palpation, No Tenderness to palpation present (GI), No Guarding due to palpation present (GI) and Yes No hepatosplenomegaly present Auscultation: normal bowel sounds R ectal Exam: deferred Skin: General skin exam: normal color and no rashes or lesions noted Neuro: General: oriented to person, oriented to place, oriented to time and patient oriented x3 Cranial nerves: Yes Equal, round and reactive pupils present Speech: normal speech Extrem: General: normal to inspection and no clubbing, cyanosis or edema Psych: Appearance: grossly normal and well kempt Affect: normal affect Results Labs 08/01/25 20:29 08/01/25 20:29 Labs: Short CBC 08/01/25 Range/Units 20:29 WBC 9.0 (4.5-10.0) K/mm3 Hgb 15.1 (14.0-18.0) g/dL Hct 43.2 (42.0-52.0) % Plt Count 162 (150-375) k/mm3 BMP 08/01/25 20:29 Sodium 133 L Potassium 3.8 Chloride 105 Carbon Dioxide 18 L BUN 29 H Creatinine 1.25 Glucose 123 H Calcium 9.7 Cardiac Enzymes 08/01/25 Range/Units 20:29 Troponin I < 0.012 (0.000-0.034) ng/mL Liver Function 08/01/25 Range/Units 20:29 Total Bilirubin 0.9 (0.2-1.3) mg/dL AST 33 (17-59) U/L ALT 25 (6-50) U/L Alkaline Phosphatase 84 (38-126) U/L Albumin 4.2 (3.5-5.1) g/dL Urine 08/01/25 Range/Units 21:52 Urine Color Yellow (Yellow) Urine Appearance Clear (Clear) Urine pH 8.0 (5.0-9.0) Ur Specific [place] > 1.045 H (1.001-1.035) Urine Protein Negative (Negative) mg/dL Urine Glucose (UA) Negative (Negative) mg/dL
[2025-08-02] MEDS: PANTOPRAZOLE SODIUM IV 40 MG VIAL IV PUSH (09:18)
--- NOTE | 2025-08-02 09:19 | P.PNIM_ITS ---
Progress Note: A&P Assessment and Plan (1) Acute obstruction of esophagus: Code(s): K22.2 - Esophageal obstruction Status: Acute Assessment and Plan: GI consulted Keep NPO Plan for EGD today Protonix b.i.d. IVF (2) Epigastric abdominal pain: Code(s): R10.13 - Epigastric pain Status: Acute Assessment and Plan: NPO Pain meds adjusted (3) Hypertension: Code(s): I10 - Essential (primary) hypertension Status: Acute Assessment and Plan: Blood pressure soft in the hospital hold antihypertensives (4) Chronic back pain: Code(s): M54.9 - Dorsalgia, unspecified; G89.29 - Other chronic pain Status: Acute Assessment and Plan: Will start home meds with the patient to take p.o. Time Spent With Patient Time with patient: Greater than 35 minutes Subjective Date/time seen: 08/02/25 09:19 Interval history: 80-year-old man hypertension, symptomatic bradycardia pacemaker, presented with severe abdominal Lactic acidosis resolved, sodium 133, no leukocytosis, CT abdomen pelvis fluid in the esophagus, EKG shows ventricular pacemaker rhythm, GI has been consulted Patient appears to be acutely of comfortable, denies complaint Review of Systems Review of Systems: 12 systems were reviewed and are negativ e except for as per HPI. Exam Narrative: General: well appearing, appears stated age. HEENT: normocephalic, atraumatic. Mucous membranes moist. EOMI, PERRLA, bilateral sclera anicteric, no conjunctival injection. Neck supple without JVD, lymphadenopathy, or bruit. Respiratory: clear bilaterally. No rales/rhonic/wheezes. Cardiovascular: Regular rate and rhythm, normal S1-S2. No murmurs, rubs, or clicks. PMI is nondisplaced, capillary refill less than 3 second. Abdomen: Soft, round, no pulsatile masses, nondistended and nontender. No rebound, no guarding. Bowel sounds present to all four quadrants. No high pitch or tinkling sounds, resonant to percussion. Extremities: No cyanosis, clubbing, or edema present. Pulses are palpable 2/2. Active ROM to all four extremities. Neuro: Alert and orientated x 4. PERRLA. Cranial nerves 2-12 intact without focal deficit. Skin: Warm, dry, and intact, without rash, erythema, or lesion. Psych: pleasant, cooperative, normal speech, normal affect, no hallucinations, no dysarthia Objective Data Vital Signs Vital Signs: Vital Signs - 24 hr 08/01/25 19:27 08/01/25 19:33 08/01/25 19:35 Temperature 98.5 F Pulse Rate 71 83 77 Respiratory Rate 25 H 33 H 34 H Blood Pressure 138/79 138/79 Pulse Oximetry 100 100 100 Oxygen Delivery Room Air Oxygen Flow Rate 08/01/25 19:45 08/01/25 20:00 08/01/25 20:16 Temperature Pulse Rate 90 101 H 95 Respiratory Rate 25 H 25 H 16 Blood Pressure 162/74 H Pulse Oximetry 100 98 98 Oxygen Delivery Oxygen Flow Rate 08/01/25 20:17 08/01/25 20:30 08/01/25 20:31 Temperature Pulse Rate 90 100 98 Respiratory Rate 19 24 H 28 H Blood Pressure 139/67 134/67 Pulse Oximetry 98 99 99 Oxygen Delivery Oxygen Flow Rate 08/01/25 20:40 08/01/25 20:45 08/01/25 21:00 Temperature Pulse Rate 90 99 Respiratory Rate 19 26 H Blood Pressure Pulse Oximetry 100 99 100 Oxygen Delivery Nasal Cannula Oxygen Flow Rate 1 08/01/25 21:01 08/01/25 21:15 08/01/25 21:30 Temperature Pulse Rate 92 95 100 Respiratory Rate 22 H 15 16 Blood Pressure 138/64 134/73 Pulse Oximetry 100 96 98 Oxygen Delivery Oxygen Flow Rate 08/01/25 21:31 08/01/25 21:50 08/01/25 22:00 Temperature Pulse Rate 100 91 76 Respiratory Rate 23 H 19 15 Blood Pressure Pulse Oximetry 99 97 98 Oxygen Delivery Oxygen Flow Rate 08/01/25 22:07 08/01/25 22:15 08/01/25 23:53 Temperature Pulse Rate 92 85 103 H Respiratory Rate 14 12 20 Blood Pressure 127/62 130/70 Pulse Oximetry 98 99 95 Oxygen Delivery Oxygen Flow Rate 08/02/25 01:14 08/02/25 04:00 08/02/25 06:00 Temperature 99.0 F 98.8 F Pulse Rate 76 75 74 Respiratory Rate 18 16 Blood Pressure 119/52 L 105/49 L Pulse Oximetry 96 93 Oxygen Delivery Oxygen Flow Rate Intake/Output Intake/Output: Intake & Output 07/30/25 07/31/25 08/01/25 08/02/25 23:59 23:59 23:59 23:59 Intake Total 1000 Output Total 600 Balance 400 Meds/Results Medications: Active Medications Generic Name Dose Route Start Last Admin Trade Name Freq PRN Reason Stop Dose Admin Acetaminophen 650 mg 08/01/25 22:49 Acetaminophen 325 Mg Tablet PO Q4H PRN Mild Pain (1-3) or Fever Diazepam 2.5 mg 08/01/25 22:51 08/02/25 00:34 Diazepam Inj (*Crx) 10 Mg/2 Ml Syringe IV PUSH 2.5 mg Q6H PRN Administration Nausea And Vomiting Lactated Ringer's 1,000 mls @ 125 mls/hr 08/01/25 22:50 08/02/25 09:18 Lr - Lactated Ringers Iv IV CONT 125 mls/hr .Q8H SHARI Administration Morphine Sulfate 4 mg 08/02/25 03:54 08/02/25 04:15 Morphine Sulfate (*Crx) 4 Mg/Ml Inj IV PUSH 4 mg Q3H PRN Administration Pain Rated 7-10 Pantoprazole Sodium 40 mg 08/02/25 09:00 08/02/25 09:18 Pantoprazole Sodium Iv 40 Mg Vial IV PUSH 40 mg Q12HR SHARI Administration Radiology Results: ITS Impressions Chest/Abdomen/Pelvis CTA 08/02/25 07:01 IMPRESSION: 1. Small sliding hiatal hernia. Labs Labs: Laboratory Results - last 24 hr 08/01/25 08/01/25 08/01/25 20:29 21:52 23:08 WBC 9.0 RBC 5.01 Hgb 15.1 Hct 43.2 MCV 86.2 MCH 30.1 MCHC 35.0 RDW 12.8 Plt Count 162 MPV 10.5 H Immature Gran % (Auto) 0.2 Neut % (Auto) 80.1 H Lymph % (Auto) 11.9 L [place] % (Auto) 6.5 Eos % (Auto) 1.1 Baso % (Auto) 0.2 Lymph # (Auto) 1.07 [place] # (Auto) 0.6 Eos # (Auto) 0.1 Baso # (Auto) 0.0 Abs Immat Gran (auto) 0.02 Absolute Neuts (auto) 7.2 H Absolute Nucleated RBC 0.000 Nucleated RBC % 0.0 Sodium 133 L Potassium 3.8 Chloride 105 Carbon Dioxide 18 L Anion Gap 10 BUN 29 H Creatinine 1.25 Estim Creat Clear Calc 45 Estimated GFR 55 L Glucose 123 H Lactic Acid 2.6 H 1.1 Calcium 9.7 Total Bilirubin 0.9 AST 33 ALT 25 Alkaline Phosphatase 84 Troponin I < 0.012 Total Protein 6.8 Albumin 4.2 Lipase 139 Urine Color Yellow Urine Appearance Clear Urine pH 8.0 Ur Specific [place] > 1.045 H Urine Protein Negative Urine Glucose (UA) Negative Urine Ketones 1+ H Ur Blood (Man) Negative Urine Nitrate Negative Urine Bilirubin Negative Urine Urobilinogen 1.0 Leukocyte Esterase Rfl Negative
[2025-08-02] MEDS: KETOROLAC 15 MG/ML VIAL (*BKC) IV PUSH ×2 (12:34→17:22)
[2025-08-02] MEDS: HYDROmorphone HCL INJ (*CRX) 1 MG/ML SYR 0.5 MG IV PUSH (12:35)
[2025-08-02] MEDS: LACTATED RINGERS 1,000 ML 150 ML IV CONT (14:19)
--- NOTE | 2025-08-02 14:25 | WPDANESEPPF ---
Anes - Initial Pre Proc Eval Procedure: Operation Date: 08/02/25 16:15 Proposed Procedures p Esophagogastroduodenoscopy - Amarjit Iqbal MD Date/Time: 08/02/25 14:25 Surgeon: Roxy Arriaza DO Pre Op Diagnosis: Epigastric pain, Intractable, Achalasia verses obs Patient Data Age: 80 Gender: M Height: 1.83 m Weight: 87.5 kg Last Vital Signs Temp 96.5 F L 08/02/25 14:13 Pulse 85 08/02/25 14:13 Resp 20 08/02/25 14:13 BP 142/58 H 08/02/25 14:13 Pulse Ox 94 08/02/25 14:13 O2 Del Method Room Air 08/02/25 14:13 O2 Flow Rate 1 08/01/25 20:40 Allergies Allergy/AdvReac Type Severity Reaction Status Date / Time No Known Allergies Allergy Unknown Verified 08/02/25 01:29 Home Medications ?Medication ?Instructions ?Recorded ?Confirmed ?Type aspirin 81 mg tablet,delayed 81 mg PO HS 01/01/22 08/02/25 History release ciclopirox 8 % topical solution 1 applic topical DAILY 01/01/22 08/02/25 History felodipine 5 mg tablet,extended 5 mg PO DAILY 01/01/22 08/02/25 History release 24 hr fluticasone propionate 50 2 spray intranasal DAILY PRN 01/01/22 08/02/25 History mcg/actuation nasal Allergy Symptoms spray,suspension lisinopril 40 mg tablet 40 mg PO DAILY 01/01/22 08/02/25 History melatonin 3 mg tablet 3 mg PO HS 01/01/22 08/02/25 History simvastatin 20 mg tablet 20 mg PO HS 01/01/22 08/02/25 History eszopiclone 2 mg tablet 2 mg PO HS 08/02/25 08/02/25 History hydrochlorothiazide 12.5 mg tablet 12.5 mg PO DAILY 08/02/25 08/02/25 History Laboratory Tests 08/01/25 08/01/25 08/01/25 20:29 21:52 23:08 WBC 9.0 K/mm3 (4.5-10.0) RBC 5.01 M/mm3 (4.6-6.20) Hgb 15.1 g/dL (14.0-18.0) Hct 43.2 % (42.0-52.0) MCV 86.2 fl (80-100) MCH 30.1 pg (26-34) MCHC 35.0 g/dl (32-36) RDW 12.8 % (11.5-14.5) Plt Count 162 k/mm3 (150-375) MPV 10.5 H fl (7.4-10.4) Immature Gran % (Auto) 0.2 % (0-0.5) Neut % (Auto) 80.1 H % (45.5-73.1) Lymph % (Auto) 11.9 L % (18.3-44.2) [place] % (Auto) 6.5 % (2.6-8.5) Eos % (Auto) 1.1 % (0-4.4) Baso % (Auto) 0.2 % (0.2-1.2) Lymph # (Auto) 1.07 K/mm3 (0.9-3.2) [place] # (Auto) 0.6 K/mm3 (0.1-0.6) Eos # (Auto) 0.1 K/mm3 (0-0.3) Baso # (Auto) 0.0 K/mm3 (0.0-0.1) Abs Immat Gran (auto) 0.02 K/mm3 (0.00-0.031) Absolute Neuts (auto) 7.2 H K/mm3 (1.3-6.7) Absolute Nucleated RBC 0.000 K/mm3 (0.0-0.012) Nucleated RBC % 0.0 % (0.0-0.2) Sodium 133 L mmol/L (137-145) Potassium 3.8 mmol/L (3.4-5.0) Chloride 105 mmol/L (98-107) Carbon Dioxide 18 L mmol/L (22-30) Anion Gap 10 mmol/L (4-12) BUN 29 H mg/dL (9-20) Creatinine 1.25 mg/dL (0.7-1.3) Estim Creat Clear Calc 45 ml/min Estimated GFR 55 L (59 - ) Glucose 123 H mg/dL (65-110) POC Capillary Glucose Lactic Acid 2.6 H mmol/L 1.1 mmol/L (0.7-2.0) (0.7-2.0) Calcium 9.7 mg/dL (8.4-10.2) Total Bilirubin 0.9 mg/dL (0.2-1.3) AST 33 U/L (17-59) ALT 25 U/L (6-50) Alkaline Phosphatase 84 U/L (38-126) Troponin I < 0.012 ng/mL (0.000-0.034) Total Protein 6.8 g/dL (6.3-8.2) Albumin 4.2 g/dL (3.5-5.1) Lipase 139 U/L (23-300) Urine Color Yellow (Yellow) Urine Appearance Clear (Clear) Urine pH 8.0 (5.0-9.0) Ur Specific [place] > 1.045 H (1.001-1.035) Urine Protein Negative mg/dL (Negative) Urine Glucose (UA) Negative mg/dL (Negative) Urine Ketones 1+ H mg/dL (Negative) Ur Blood (Man) Negative (Negative) Urine Nitrate Negative (Negative) Urine Bilirubin Negative (Negative) Urine Urobilinogen 1.0 mg/dL (<2.0) Leukocyte Esterase Rfl Negative BECKY/UL (Negative) 08/02/25 14:14 WBC RBC Hgb Hct MCV MCH MCHC RDW Plt Count MPV Immature Gran % (Auto) Neut % (Auto) Lymph % (Auto) [place] % (Auto) Eos % (Auto) Baso % (Auto) Lymph # (Auto) [place] # (Auto) Eos # (Auto) Baso # (Auto) Abs Immat Gran (auto) Absolute Neuts (auto) Absolute Nucleated RBC Nucleated RBC % Sodium Potassium Chloride Carbon Dioxide Anion Gap BUN Creatinine Estim Creat Clear Calc Estimated GFR Glucose POC Capillary Glucose 137 H mg/dl (65-105) Lactic Acid Calcium Total Bilirubin AST ALT Alkaline Phosphatase Troponin I Total Protein Albumin Lipase Urine Color Urine Appearance Urine pH Ur Specific [place] Urine Protein Urine Glucose (UA) Urine Ketones Ur Blood (Man) Urine Nitrate Urine Bilirubin Urine Urobilinogen Leukocyte Esterase Rfl Patient hx anesthesia problems: none Family hx anesthesia problems: none Results Review: All pre-operative results and documents have been reviewed as part of the pre-operative evaluation. 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 History of esophagogastroduodenoscopy (EGD) (12/2021) H/O inguinal hernia repair Family History Family History Mother Throat cancer Sibling Myocardial infarction Social History Social History Social History: Code status: Surrogate decision maker: Graciela (spouse) Years smoked: 2 Smoking status: Former smoker Tobacco type: pipe Second hand tobacco smoke exposure: Yes Additional smoking assessment comments: smoked a pipe Alcohol intake: current Drinks per week: 3 Substance use: never Substance use type: does not use Lack of Transportation: No Lack of Food: Never True Current Housing: I Have Housing Concerned About Future Housing: No Difficulty Paying Gas/Electric Bills: No Difficulty Paying for Meds: No Currently Unemployed: No Education: Bachelor's Degree Difficulty w/ Childcare or Family Care: No Spiritual care concerns: No Anes - Eval Final PreProcedure Day of Procedure 08/02/25 14:25 Patient weight: overweight Lungs: normal air movement Airway: Mallampati scale class II and special considerations poor dentition Neurological: alert and oriented Last oral intake: >/= 8 hours ASA classification: III Emergent: no Anesthetic plan: proceed Anesthesia type and monitoring: general GIVS and standard monitoring Results Review: All pre-operative results and documents have been reviewed as part of the pre-operative evaluation. Note reviewed. HTN, hyperlipidemia, mild by ECHO 2021, leadless pacemaker in place, now w epigastric pain/hx of schatkis ring. HTN, hyperlipidemia Informed Consent: The patient's anesthetic plan and its attendant risks and benefits were discussed with the patient/family/POA. Questions were solicited and answers provided to the satisfaction of the patient/family/POA.
--- NOTE | 2025-08-02 14:48 | S_PTH ---
PATIENT: Diego Ford LOC: [id number] U#:[id number] AGE/SX: 80/M ROOM: 314 RE08/02/[address]: Marci Hoffman APRN : 1945 BED: 01 DIS: 08/04/2025 SPEC #: [id number] RECD: 08/03/25 07:44 STATUS: KEN REZoraida #: [id number] LAMINE: 08/02/25 14:[address]: Amarjit Iqbal DEPT: [facility] Surgical RECD BY: Rebekah Garnica ENTERED: 08/03/25 07:45 SP TYPE: Surgical OTHR DR: DO Davida Quinn, Tissues: A - Gastric Biopsy Procedures: Gross and Microscopic Level 4
[2025-08-02] MEDS: PANTOPRAZOLE 40 MG TABLET PO (21:46)
[2025-08-03] MEDS: KETOROLAC 15 MG/ML VIAL (*BKC) IV PUSH ×5 (00:31→23:30)
[2025-08-03] MEDS: LACTATED RINGERS 1,000 ML 75 ML IV CONT (00:33)
[2025-08-03] MEDS: diazePAM INJ (*CRX) 10 MG/2 ML SYRINGE 2.5 MG IV PUSH (02:57)
[2025-08-03 06:00] VITALS: BP 152/71; PULSE 104; RESP 16; TEMP 37.1; O2SAT 93
[2025-08-03 06:23] LABS: Hematocrit 41.2 % (42.0-52.0); Hemoglobin 13.5 g/dL (14.0-18.0); Mean Corpuscular HGB Conc 32.8 g/dl (32-36); Mean Corpuscular Hemoglobin 30.0 pg (26-34); Mean Corpuscular Volume 91.6 fl (80-100); Platelet Count Result 108 k/mm3 (150-375); Red Blood Count 4.50 M/mm3 (4.6-6.20); White Blood Count 11.0 K/mm3 (4.5-10.0)
[2025-08-03 06:43] LABS: Anion Gap 6 mmol/L (4-12); Blood Urea Nitrogen 29 mg/dL (9-20); Calcium 8.9 mg/dL (8.4-10.2); Carbon Dioxide 24 mmol/L (22-30); Chloride 102 mmol/L (98-107); Estimated CRCL calculation 41 ml/min; Estimated Glomerular Filt Rate 50; Glucose 102 mg/dL (65-110); Potassium 3.6 mmol/L (3.4-5.0); Sodium 132 mmol/L (137-145)
[2025-08-03] MEDS: PANTOPRAZOLE 40 MG TABLET PO ×2 (08:50→20:41)
--- NOTE | 2025-08-03 10:20 | P.PNIM_ITS ---
Progress Note: A&P Assessment and Plan (1) Right upper quadrant pain: Code(s): R10.11 - Right upper quadrant pain Status: Acute Assessment and Plan: Unable to do MRCP due to pacemaker Surgery consulted pending recommendations Will start patient on Zosyn cases cholecystitis IVF A.m. labs Lactic acid Blood cultures (2) Acute obstruction of esophagus: Code(s): K22.2 - Esophageal obstruction Status: Acute Assessment and Plan: GI consulted EKG yesterday Protonix b.i.d. Full liquid diet Currently NPO for acute abdominal pain not related to EGD (3) Epigastric abdominal pain: Code(s): R10.13 - Epigastric pain Status: Acute Assessment and Plan: NPO Pain meds adjusted (4) Hypertension: Code(s): I10 - Essential (primary) hypertension Status: Acute Assessment and Plan: Hold hydrochlorothiazide Held lisinopril to do increased creatinine (5) Chronic back pain: Code(s): M54.9 - Dorsalgia, unspecified; G89.29 - Other chronic pain Status: Acute Assessment and Plan: Restart home meds Time Spent With Patient Time with patient: Greater than 35 minutes Subjective Date/time seen: 08/03/25 10:20 Interval history: 80-year-old man hypertension, symptomatic bradycardia pacemaker, presented with severe abdominal WBC 11.0 morning, hemoglobin 13.5, slight bump in creatinine Patient had the EGD yesterday and now on full liquids patient states that his swelling is fine Complaining of a abdominal tenderness to specially in the upper right hand quadrant. Unable to do MRCP due to pacemaker, patient ate this morning to pain medicines that he into the HIDA scan, surgery consult pending. Review of Systems Review of Systems: 12 systems were reviewed and are negativ e except for as per HPI. Exam Narrative: General: well appearing, appears stated age. HEENT: normocephalic, atraumatic. Mucous membranes moist. EOMI, PERRLA, bilateral sclera anicteric, no conjunctival injection. Neck supple without JVD, lymphadenopathy, or bruit. Respiratory: clear bilaterally. No rales/rhonic/wheezes. Cardiovascular: Regular rate and rhythm, normal S1-S2. No murmurs, rubs, or clicks. PMI is nondisplaced, capillary refill less than 3 second. Abdomen: Firm distended tender to palpation, none peritoneal Extremities: No cyanosis, clubbing, or edema present. Pulses are palpable 2/2. Active ROM to all four extremities. Neuro: Alert and orientated x 4. PERRLA. Cranial nerves 2-12 intact without focal deficit. Skin: Warm, dry, and intact, without rash, erythema, or lesion. Psych: pleasant, cooperative, normal speech, normal affect, no hallucinations, no dysarthia Objective Data Vital Signs Vital Signs: Vital Signs - 24 hr 08/02/25 12:00 08/02/25 14:00 08/02/25 14:13 Temperature 97.4 F L 96.5 F L Pulse Rate 65 68 85 Respiratory Rate 16 20 Blood Pressure 138/68 142/58 H Pulse Oximetry 98 94 Oxygen Delivery Room Air 08/02/25 14:52 08/02/25 15:02 08/02/25 15:12 Temperature Pulse Rate 84 84 81 Respiratory Rate 19 20 20 Blood Pressure 85/39 L 97/39 L 100/39 L Pulse Oximetry 94 92 92 Oxygen Delivery Room Air Room Air Room Air 08/02/25 16:00 08/02/25 20:00 08/02/25 22:00 Temperature 97.9 F Pulse Rate 77 88 Respiratory Rate 18 Blood Pressure 111/53 L Pulse Oximetry 96 Oxygen Delivery Room Air 08/03/25 06:00 08/03/25 08:00 Temperature 98.8 F Pulse Rate 104 H Respiratory Rate 16 Blood Pressure 152/71 H Pulse Oximetry 93 Oxygen Delivery Room Air Intake/Output Intake/Output: Intake & Output 07/31/25 08/01/25 08/02/25 08/03/25 23:59 23:59 23:59 23:59 Intake Total 2190 1525.8 Output Total 900 900 Balance 1290 625.8 Meds/Results Medications: Active Medications Generic Name Dose Route Start Last Admin Trade Name Freq PRN Reason Stop Dose Admin Acetaminophen 650 mg 08/01/25 22:49 Acetaminophen 325 Mg Tablet PO Q4H PRN Mild Pain (1-3) or Fever Aspirin 81 mg 08/03/25 21:00 Aspirin 81 Mg Enteric Tablet PO [facility] Dextrose 12.5 gm 08/02/25 09:28 Dextrose 50% 25 Gm/50 Ml Syringe IV PUSH PRN PRN Hypoglycemia Protocol Diazepam 2.5 mg 08/01/25 22:51 08/03/25 02:57 Diazepam Inj (*Crx) 10 Mg/2 Ml Syringe IV PUSH 2.5 mg Q6H PRN Administration Nausea And Vomiting Glucagon 1 mg 08/02/25 09:28 Glucagon For Inj 1 Mg Vial IM PRN PRN Hypoglycemia Protocol Glucose 15 gm 08/02/25 09:28 Glucose Oral Gel 15 Gm Of Glucse In 37.5 Gm Tube PO PRN PRN Hypoglycemia Protocol Hydrochlorothiazide 12.5 mg 08/03/25 10:20 Hydrochlorothiazide 12.5 Mg Capsule PO DAILY SHARI Hydromorphone HCl 0.5 mg 08/02/25 11:27 08/02/25 12:35 Hydromorphone Hcl Inj (*Crx) 1 Mg/Ml Syr IV PUSH 0.5 mg Q3H PRN Administration Pain Rated 7-10 Lactated Ringer's 1,000 mls @ 75 mls/hr 08/01/25 22:50 08/03/25 00:33 Lr - Lactated Ringers Iv IV CONT 75 mls/hr .[id number] SHARI Administration Dextrose 1,000 mls @ 100 mls/hr 08/02/25 09:28 Dextrose 5% 1,000 Ml IVPB PRN PRN Hypoglycemia Protocol Ketorolac Tromethamine 15 mg 08/02/25 12:00 08/03/25 06:30 Ketorolac 15 Mg/Ml Vial (*Bkc) IV PUSH 15 mg Q6H SHARI Administration Lisinopril 40 mg 08/03/25 10:20 Lisinopril 20 Mg Tablet PO DAILY SHARI Melatonin 3 mg 08/03/25 21:00 Melatonin 3 Mg Tablet PO HS SHARI Pantoprazole Sodium 40 mg 08/02/25 21:00 08/03/25 08:50 Pantoprazole 40 Mg Tablet PO 40 mg Q12HR SHARI Administration Simvastatin 20 mg 08/03/25 21:00 Simvastatin 20 Mg Tablet PO HS SHARI Radiology Results: ITS Impressions Chest/Abdomen/Pelvis CTA 08/02/25 07:01 IMPRESSION: 1. Small sliding hiatal hernia. Upper Quadrant Ultrasound 08/02/25 15:57 IMPRESSION: 1. No mobile gallstones. Gallbladder is mildly distended in size with thickening of gallbladder wall. Possible small polyps of the wall of the gallbladder. Borderline size of the extrahepatic bile ducts. 2. Please correlate with liver function results. If symptoms warrant further evaluation with MRCP or hepatobiliary nuclear scan may be considered. Labs Labs: Laboratory Results - last 24 hr 08/02/25 08/03/25 14:14 05:18 WBC 11.0 H RBC 4.50 L Hgb 13.5 L Hct 41.2 L MCV 91.6 D MCH 30.0 MCHC 32.8 RDW 13.2 Plt Count 108 L MPV 10.8 H Sodium 132 L Potassium 3.6 Chloride 102 Carbon Dioxide 24 Anion Gap 6 BUN 29 H Creatinine 1.36 H Estim Creat Clear Calc 41 Estimated GFR 50 L Glucose 102 POC Capillary Glucose 137 H Calcium 8.9 Quality VTE Prophylaxis VTE prophylaxis: mechanical ordered (SCDs)
[2025-08-03] MEDS: HYDROmorphone HCL INJ (*CRX) 1 MG/ML SYR 0.5 MG IV PUSH (10:37)
[2025-08-03 14:00] VITALS: BP 147/71; PULSE 103; RESP 18; TEMP 36.8; O2SAT 93
--- NOTE | 2025-08-03 14:22 | WPDANESPN ---
Anes - Prog Note Post-Op Date/Time: 08/03/25 14:22 Cardiovascular status: normal Respiratory status: normal Airway patency: baseline Mental status: baseline Post-Op hydration status: normal Vital Signs: Last Vital Signs Temp 37.1 C 08/03/25 06:00 Pulse 104 H 08/03/25 06:00 Resp 16 08/03/25 06:00 BP 152/71 H 08/03/25 06:00 Pulse Ox 93 08/03/25 06:00 O2 Del Method Room Air 08/03/25 10:00 O2 Flow Rate 1 08/01/25 20:40 Pain Score (VAS): 0 I/O: Intake & Output 08/02/25 08/03/25 08/03/25 23:59 07:59 15:59 Intake Total 1090 1435.8 90 Output Total 300 900 Balance 790 535.8 90 Laboratory Tests 08/03/25 05:18 08/03/25 05:18 08/03/25 08/03/25 05:18 06:01 WBC 11.0 H RBC 4.50 L Hgb 13.5 L Hct 41.2 L MCV 91.6 D MCH 30.0 MCHC 32.8 RDW 13.2 Plt Count 108 L MPV 10.8 H Sodium 132 L Potassium 3.6 Chloride 102 Carbon Dioxide 24 Anion Gap 6 BUN 29 H Creatinine 1.36 H Estim Creat Clear Calc 41 Estimated GFR 50 L Glucose 102 POC Capillary Glucose 123 H Calcium 8.9 Post-procedural complaints: none Patient Feedback: Patient satisfied with anesthetic care.
[2025-08-03] MEDS: SODIUM CHLORIDE 0.9% IV 1,000 ML 75 ML IV CONT (14:32)
[2025-08-03] MEDS: PIPERACILLIN/TAZOBACTAM SOD 3.375 GM in SODIUM CHLORIDE 0.9% IV 50 ML 100 ML IVPB ×2 (14:32→20:42)
--- NOTE | 2025-08-03 15:34 | PM.CNGS ---
Assessment and Plan Assessment and plan (1) Epigastric abdominal pain: Code(s): R10.13 - Epigastric pain Status: Acute Assessment and Plan: Patient presented to the hospital 2 days ago with epigastric pain. Workup included a CTA which demonstrated a small sliding hiatal hernia, as well as a distended gallbladder. Labs demonstrated a normal white blood cell count of 9.0, now slightly elevated at 11.0. GI team was consulted and performed an EGD yesterday. This demonstrated reflux esophagitis, and esophageal ring which was dilated with balloon, and a hiatal hernia. Biosies taken and sent to pathology. Patient instructed to continue PPI daily. Per GI note patient was complaining of right upper quadrant pain prior to scope. (2) Right upper quadrant pain: Code(s): R10.11 - Right upper quadrant pain Status: Acute Assessment and Plan: Patient states that he began having right upper quadrant pain after EGD. However, per chart review patient was complaining of this pain prior to the scope. Liver enzymes and total bilirubin upon admission were all normal. White blood cell count up to 11.0 today. He was started on Zosyn. Physical exam revealed tenderness to right flank radiating up through right upper quadrant. Patient denies any nausea/ vomiting or pain radiating to his back. Due to patient's recent pacemaker placement, he cannot have an MRCP. He already ate today, so HIDA scan was ordered for tomorrow morning. We will follow for results and plan to treat accordingly. (3) Pacemaker: Code(s): Z95.0 - Presence of cardiac pacemaker Status: Acute Assessment and Plan: Patient had a pacemaker placed roughly 1 month ago at [facility]. Cardiac and vascular etiologies of pain ruled out. Lactic acid was slightly elevated to 2.6 two days ago, but this has since normalized to 1.2. (4) Hypertension: Code(s): I10 - Essential (primary) hypertension Status: Acute Assessment and Plan: Continue management per hospitalist. (5) Chronic back pain: Code(s): M54.9 - Dorsalgia, unspecified; G89.29 - Other chronic pain Status: Acute Plan Discussed patient's case and plan of care with Dr. Shrestha. History of Present Illness Consult details Consult date: 08/03/25 Reason for consult: other (gallbladder mildly distended in size with thickening of gallbladder wall) Requesting physician: Deneen Cochran APRN Narrative: patient is an 80-year-old male with history of Schatzki ring of distal esophagus, aortic stenosis, hypertension, symptomatic bradycardia (s/p pacemaker insertion 1 month ago at [facility]) who we have been asked to see in surgical consultation for distended gallbladder with wall thickening. patient presented to the ED via EMS from home 2 days ago after he began having epigastric pain around 5:30 p.m. he does not recall eating anything for dinner that night. He states his last meal was lunch earlier that day. Of note, patient was seen here in 2021 for epigastric pain. he underwent EGD and a Schatzki's ring was present at the GE junction. Biopsies were taken from the GE junction for pathology and to break the fibrotic tissue. He was also to noted to have moderate localized gastritis in the antrum of the stomach at this time. Upon this most recent admission to the ED 2 days ago, he was noted to be in significant pain as he was writhing in pain. He was given morphine and Valium, even after receiving fentanyl in the ambulance. A CTA was obtained and demonstrated gallbladder distension. No other abnormalities aside from a small sliding hiatal hernia. Vascular etiologies of pain were ruled out. Lactic acid elevated At 2.6 upon arrival, but now normalized. the case was discussed with gastroenterology who performed endoscopy yesterday. This demonstrated reflux esophagitis at the GE junction. Nonobstructive bring in the esophageal cardia which was dilated using an 18 mm balloon. Hiatal hernia found eg junction as well. No gastritis or other abnormalities or masses. Multiple biopsies taken. Since EGD, patient has been complaining of pain to his right upper quadrant area. A right upper quadrant ultrasound demonstrated no mobile gallstones. Gallbladder is mildly distended in size with thickening of gallbladder wall. Possible small polyps of the wall of the gallbladder. General surgery team consulted at this time. Upon my visit with the patient he still endorses right upper quadrant pain. He describes this as intermittent sharp pain that is exacerbated with movement. It is not constant and it does not radiate to his back. He denies any nausea or vomiting. Denies any frequent belching. Denies any history of pain like this in the past. Denies any history of GERD. States he does not regularly take a PPI. States his last bowel movement was Saturday morning prior to his arrival at hospital. He does endorse passing gas. Abdominal surgical history includes open left inguinal hernia repair and laparoscopic right inguinal hernia repair. Patient cannot have MRCP due to his pacemaker. He did already eat this morning, so HIDA scan has been deferred until tomorrow. 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 History of esophagogastroduodenoscopy (EGD) (12/2021) H/O inguinal hernia repair Family History Family History Mother Throat cancer Sibling Myocardial infarction Social History Social History (Updated 08/02/25 @ 20:37 by Roxy Arriaza DO) Social History: Code status: Surrogate decision maker: Graciela (spouse) Years smoked: 2 Smoking status: Former smoker Tobacco type: pipe Second hand tobacco smoke exposure: Yes Additional smoking assessment comments: smoked a pipe Alcohol intake: current Drinks per week: 3 Substance use: never Substance use type: does not use Lack of Transportation: No Lack of Food: Never True Current Housing: I Have Housing Concerned About Future Housing: No Difficulty Paying Gas/Electric Bills: No Difficulty Paying for Meds: No Currently Unemployed: No Education: Bachelor's Degree Difficulty w/ Childcare or Family Care: No Additional living arrangements comments: He lives with his of 21 years. Occupation/Education: retired Spiritual care concerns: No Meds Home Medications and Allergies Home Medications ?Medication ?Instructions ?Recorded ?Confirmed ?Type aspirin 81 mg tablet,delayed 81 mg PO HS 01/01/22 08/02/25 History release ciclopirox 8 % topical solution 1 applic topical DAILY 01/01/22 08/02/25 History felodipine 5 mg tablet,extended 5 mg PO DAILY 01/01/22 08/02/25 History release 24 hr fluticasone propionate 50 2 spray intranasal DAILY PRN 01/01/22 08/02/25 History mcg/actuation nasal Allergy Symptoms spray,suspension lisinopril 40 mg tablet 40 mg PO DAILY 01/01/22 08/02/25 History melatonin 3 mg tablet 3 mg PO HS 01/01/22 08/02/25 History simvastatin 20 mg tablet 20 mg PO HS 01/01/22 08/02/25 History eszopiclone 2 mg tablet 2 mg PO HS 08/02/25 08/02/25 History hydrochlorothiazide 12.5 mg tablet 12.5 mg PO DAILY 08/02/25 08/02/25 History Allergies Allergy/AdvReac Type Severity Reaction Status Date / Time No Known Allergies Allergy Unknown Verified 08/02/25 01:29 Vital Signs Vital Signs - 24 hr 08/02/25 16:00 08/02/25 20:00 08/02/25 22:00 Temperature 97.9 F Pulse Rate 77 88 Respiratory Rate 18 Blood Pressure 111/53 L Pulse Oximetry 96 Oxygen Delivery Room Air 08/03/25 06:00 08/03/25 08:00 08/03/25 10:00 Temperature 98.8 F Pulse Rate 104 H Respiratory Rate 16 Blood Pressure 152/71 H Pulse Oximetry 93 Oxygen Delivery Room Air Room Air Exam Const: General: comfortable and no acute distress Other: Sitting up in chair with minimal pain. When asked to move to bed for my exam he endorsed significant pain to right upper quadrant. Neck: Neck: supple and no JVD Resp: Effort & Inspection: normal respiratory effort Cardio: Rate: tachycardic GI: Inspection: distended GI Palp: Yes Soft to palpation and Yes Tenderness to palpation present (GI) ( Right flank, radiating towards right upper quadrant.) Auscultation: normal bowel sounds Skin: General skin exam: normal color and no rashes or lesions noted Neuro: Speech: normal speech Sensory Exam: normal sensation Extrem: General: normal to inspection Psych: Mental Status: mental status grossly normal Results Labs 08/03/25 05:18 08/03/25 05:18 Labs: Abnormal lab results 08/03/25 08/03/25 Range/Units 05:18 06:01 WBC 11.0 H (4.5-10.0) K/mm3 RBC 4.50 L (4.6-6.20) M/mm3 Hgb 13.5 L (14.0-18.0) g/dL Hct 41.2 L (42.0-52.0) % Plt Count 108 L (150-375) k/mm3 MPV 10.8 H (7.4-10.4) fl Sodium 132 L (137-145) mmol/L BUN 29 H (9-20) mg/dL Creatinine 1.36 H (0.7-1.3) mg/dL Estimated GFR 50 L (59 - ) POC Capillary Glucose 123 H (65-105) mg/dl Diabetes panel 08/03/25 Range/Units 05:18 Sodium 132 L (137-145) mmol/L Potassium 3.6 (3.4-5.0) mmol/L Chloride 102 (98-107) mmol/L Carbon Dioxide 24 (22-30) mmol/L BUN 29 H (9-20) mg/dL Creatinine 1.36 H (0.7-1.3) mg/dL Glucose 102 (65-110) mg/dL Calcium 8.9 (8.4-10.2) mg/dL Calcium panel 08/03/25 Range/Units 05:18 Calcium 8.9 (8.4-10.2) mg/dL Pituitary panel 08/03/25 Range/Units 05:18 Sodium 132 L (137-145) mmol/L Potassium 3.6 (3.4-5.0) mmol/L Chloride 102 (98-107) mmol/L Carbon Dioxide 24 (22-30) mmol/L BUN 29 H (9-20) mg/dL Creatinine 1.36 H (0.7-1.3) mg/dL Glucose 102 (65-110) mg/dL Calcium 8.9 (8.4-10.2) mg/dL Adrenal panel 08/03/25 Range/Units 05:18 Sodium 132 L (137-145) mmol/L Potassium 3.6 (3.4-5.0) mmol/L Chloride 102 (98-107) mmol/L Carbon Dioxide 24 (22-30) mmol/L BUN 29 H (9-20) mg/dL Creatinine 1.36 H (0.7-1.3) mg/dL Glucose 102 (65-110) mg/dL Calcium 8.9 (8.4-10.2) mg/dL All other labs normal.
--- NOTE | 2025-08-03 16:28 | WPDGIPROGNO ---
Progress Note: A&P Assessment and Plan (1) Right upper quadrant pain: Code(s): R10.11 - Right upper quadrant pain Status: Acute Assessment and Plan: us reviewed, pending hida scan, surgery on board egd noted mild esophagitis with ring that was dilated but doubt that will cause his rt pain he can not get mrcp- he has pacemaker but liver enzymes normal (2) Schatzki ring of distal esophagus: Onset Date: 2021 Code(s): K22.2 - Esophageal obstruction Status: Acute (3) Esophagitis: Code(s): K20.90 - Esophagitis, unspecified without bleeding Status: Acute (4) Hiatal hernia: Code(s): K44.9 - Diaphragmatic hernia without obstruction or gangrene Status: Acute Subjective Date/time seen: 08/03/25 16:28 Interval history: egd showed esophagitis and non-obstructive ring that was dilated still with pain in ruq- us showed GS Review of Systems Review of Systems: All systems reviewed & are unremarkable except as noted in HPI and below Exam Const: General: comfortable and no acute distress HENMT: Face/Nose/Sinus: Normal nares present Eyes: Sclera: sclerae normal Neck: Neck: supple and no JVD Resp: Effort & Inspection: normal respiratory effort Cardio: Rate: tachycardic GI: Inspection: distended GI Palp: Yes Soft to palpation and Yes Tenderness to palpation present (GI) ( Right flank, radiating towards right upper quadrant.) Auscultation: normal bowel sounds Skin: General skin exam: normal color and no rashes or lesions noted Neuro: Speech: normal speech Sensory Exam: normal sensation Extrem: General: normal to inspection Psych: Mental Status: mental status grossly normal Objective Data Vital Signs Vital Signs: Vital Signs - 24 hr 08/02/25 20:00 08/02/25 22:00 08/03/25 06:00 Temperature 97.9 F 98.8 F Pulse Rate 88 104 H Respiratory Rate 18 16 Blood Pressure 111/53 L 152/71 H Pulse Oximetry 96 93 Oxygen Delivery Room Air 08/03/25 08:00 08/03/25 10:00 08/03/25 14:00 Temperature 98.3 F Pulse Rate 103 H Respiratory Rate 18 Blood Pressure 147/71 H Pulse Oximetry 93 Oxygen Delivery Room Air Room Air Intake/Output Intake/Output: Intake & Output 07/31/25 08/01/25 08/02/25 08/03/25 23:59 23:59 23:59 23:59 Intake Total 2190 1525.8 Output Total 900 900 Balance 1290 625.8 Meds/Results Medications: Active Medications Generic Name Dose Route Start Last Admin Trade Name Freq PRN Reason Stop Dose Admin Acetaminophen 650 mg 08/01/25 22:49 Acetaminophen 325 Mg Tablet PO Q4H PRN Mild Pain (1-3) or Fever Aspirin 81 mg 08/03/25 21:00 Aspirin 81 Mg Enteric Tablet PO HS SHARI Dextrose 12.5 gm 08/02/25 09:28 Dextrose 50% 25 Gm/50 Ml Syringe IV PUSH PRN PRN Hypoglycemia Protocol Diazepam 2.5 mg 08/01/25 22:51 08/03/25 02:57 Diazepam Inj (*Crx) 10 Mg/2 Ml Syringe IV PUSH 2.5 mg Q6H PRN Administration Nausea And Vomiting Glucagon 1 mg 08/02/25 09:28 Glucagon For Inj 1 Mg Vial IM PRN PRN Hypoglycemia Protocol Glucose 15 gm 08/02/25 09:28 Glucose Oral Gel 15 Gm Of Glucse In 37.5 Gm Tube PO PRN PRN Hypoglycemia Protocol Hydrochlorothiazide 12.5 mg 08/03/25 10:20 08/03/25 10:37 Hydrochlorothiazide 12.5 Mg Capsule PO 12.5 mg On Hold: 08/03/25 14:17 DAILY SHARI Administration Hydromorphone HCl 0.5 mg 08/02/25 11:27 08/03/25 10:37 Hydromorphone Hcl Inj (*Crx) 1 Mg/Ml Syr IV PUSH 0.5 mg Q3H PRN Administration Pain Rated 7-10 Lactated Ringer's 1,000 mls @ 75 mls/hr 08/01/25 22:50 08/03/25 00:33 Lr - Lactated Ringers Iv IV CONT 75 mls/hr .[id number] SHARI Administration Dextrose 1,000 mls @ 100 mls/hr 08/02/25 09:28 Dextrose 5% 1,000 Ml IVPB PRN PRN Hypoglycemia Protocol Piperacillin Sod/Tazobactam 50 mls @ 100 mls/hr 08/03/25 15:00 08/03/25 14:32 Sod 3.375 gm/ Sodium Chloride IVPB 100 mls/hr Q6H SHARI Administration Sodium Chloride 1,000 mls @ 75 mls/hr 08/03/25 14:20 08/03/25 14:32 Normal Saline Iv IV CONT 75 mls/hr .[id number] SHARI Administration Ketorolac Tromethamine 15 mg 08/02/25 12:00 08/03/25 11:54 Ketorolac 15 Mg/Ml Vial (*Bkc) IV PUSH 15 mg Q6H SHARI Administration Lisinopril 40 mg 08/03/25 10:20 08/03/25 14:33 Lisinopril 20 Mg Tablet PO Not Given On Hold: 08/03/25 10:22 DAILY SHARI Melatonin 3 mg 08/03/25 21:00 Melatonin 3 Mg Tablet PO HS SHARI Pantoprazole Sodium 40 mg 08/02/25 21:00 08/03/25 08:50 Pantoprazole 40 Mg Tablet PO 40 mg Q12HR SHARI Administration Simvastatin 20 mg 08/03/25 21:00 Simvastatin 20 Mg Tablet PO HS [facility] Radiology Results: ITS Impressions Chest/Abdomen/Pelvis CTA 08/02/25 07:01 IMPRESSION: 1. Small sliding hiatal hernia. Upper Quadrant Ultrasound 08/02/25 15:57 IMPRESSION: 1. No mobile gallstones. Gallbladder is mildly distended in size with thickening of gallbladder wall. Possible small polyps of the wall of the gallbladder. Borderline size of the extrahepatic bile ducts. 2. Please correlate with liver function results. If symptoms warrant further evaluation with MRCP or hepatobiliary nuclear scan may be considered. Labs Labs: Laboratory Results - last 24 hr 08/03/25 08/03/25 08/03/25 05:18 06:01 15:19 WBC 11.0 H RBC 4.50 L Hgb 13.5 L Hct 41.2 L MCV 91.6 D MCH 30.0 MCHC 32.8 RDW 13.2 Plt Count 108 L MPV 10.8 H Sodium 132 L Potassium 3.6 Chloride 102 Carbon Dioxide 24 Anion Gap 6 BUN 29 H Creatinine 1.36 H Estim Creat Clear Calc 41 Estimated GFR 50 L Glucose 102 POC Capillary Glucose 123 H Lactic Acid 1.2 Calcium 8.9
[2025-08-03 17:31] LABS: Alanine Aminotransferase 62 U/L (6-50); Albumin Level 4.0 g/dL (3.5-5.1); Alkaline Phosphatase 69 U/L (38-126); Anion Gap 10 mmol/L (4-12); Aspartate Amino Transferase 51 U/L (17-59); Bilirubin,Total 1.7 mg/dL (0.2-1.3); Blood Urea Nitrogen 29 mg/dL (9-20); Calcium 9.5 mg/dL (8.4-10.2); Carbon Dioxide 23 mmol/L (22-30); Chloride 100 mmol/L (98-107); Estimated CRCL calculation 41 ml/min; Estimated Glomerular Filt Rate 50; Glucose 108 mg/dL (65-110); Potassium 4.0 mmol/L (3.4-5.0); Sodium 133 mmol/L (137-145); Total Protein 6.7 g/dL (6.3-8.2)
[2025-08-03] MEDS: ASPIRIN 81 MG ENTERIC TABLET PO (20:41)
[2025-08-03] MEDS: MELATONIN 3 MG TABLET PO (20:42)
[2025-08-03] MEDS: SIMVASTATIN 20 MG TABLET PO (20:42)
[2025-08-03 21:50] VITALS: BP 112/63; PULSE 89; RESP 14; TEMP 36.9; O2SAT 94
[2025-08-04] MEDS: PIPERACILLIN/TAZOBACTAM SOD 3.375 GM in SODIUM CHLORIDE 0.9% IV 50 ML 100 ML IVPB ×2 (03:47→11:13)
[2025-08-04] MEDS: SODIUM CHLORIDE 0.9% IV 1,000 ML 75 ML IV CONT (03:48)
[2025-08-04] MEDS: KETOROLAC 15 MG/ML VIAL (*BKC) IV PUSH ×2 (05:11→11:18)
[2025-08-04 05:37] LABS: Hematocrit 39.0 % (42.0-52.0); Hemoglobin 13.0 g/dL (14.0-18.0); Mean Corpuscular HGB Conc 33.3 g/dl (32-36); Mean Corpuscular Hemoglobin 30.2 pg (26-34); Mean Corpuscular Volume 90.5 fl (80-100); Platelet Count Result 108 k/mm3 (150-375); Red Blood Count 4.31 M/mm3 (4.6-6.20); White Blood Count 9.8 K/mm3 (4.5-10.0)
[2025-08-04 06:00] VITALS: BP 149/62; PULSE 88; RESP 16; TEMP 37.3; O2SAT 95
--- NOTE | 2025-08-04 09:28 | P.PNIM_ITS ---
Progress Note: A&P Assessment and Plan (1) Right upper quadrant pain: Code(s): R10.11 - Right upper quadrant pain Status: Acute Assessment and Plan: Unable to do MRCP due to pacemaker Surgery consulted pending recommendations --Plan for HIDA scan this AM Will start patient on Zosyn cases cholecystitis IVF NS 75ml/hour A.m. labs Lactic acid, now normalized Blood cultures (2) Acute obstruction of esophagus: Code(s): K22.2 - Esophageal obstruction Status: Acute Assessment and Plan: GI consulted --us reviewed, pending hida scan, surgery on board egd showed esophagitis and non-obstructive ring that was dilated still with pain in ruq- us showed GS EKG r/o cardiac Protonix b.i.d. Full liquid diet Currently NPO for acute abdominal pain not related to EGD (3) Epigastric abdominal pain: Code(s): R10.13 - Epigastric pain Status: Acute Assessment and Plan: NPO Pain meds adjusted (4) Hypertension: Code(s): I10 - Essential (primary) hypertension Status: Acute Assessment and Plan: Hold hydrochlorothiazide Held lisinopril to do increased creatinine (5) Chronic back pain: Code(s): M54.9 - Dorsalgia, unspecified; G89.29 - Other chronic pain Status: Acute Assessment and Plan: Restart home meds Subjective Date/time seen: 08/04/25 Interval history: Review of Systems Review of Systems: 12 systems were reviewed and are negativ e except for as per HPI. Exam Narrative: General: well appearing, appears stated age. HEENT: normocephalic, atraumatic. Mucous membranes moist. EOMI, PERRLA, bilateral sclera anicteric, no conjunctival injection. Neck supple without JVD, lymphadenopathy, or bruit. Respiratory: clear bilaterally. No rales/rhonic/wheezes. Cardiovascular: Regular rate and rhythm, normal S1-S2. No murmurs, rubs, or clicks. PMI is nondisplaced, capillary refill less than 3 second. Abdomen: Firm distended tender to palpation, none peritoneal Extremities: No cyanosis, clubbing, or edema present. Pulses are palpable 2/2. Active ROM to all four extremities. Neuro: Alert and orientated x 4. PERRLA. Cranial nerves 2-12 intact without focal deficit. Skin: Warm, dry, and intact, without rash, erythema, or lesion. Psych: pleasant, cooperative, normal speech, normal affect, no hallucinations, no dysarthia Const: Other: Patient is in obvious pain, lying in the bed with the head of bed at 30?, the patient is grimacing in when sitting in holding his body still HENMT: Other: Mucous membranes are tacky, no oral pharyngeal erythema, good dentition, head is normocephalic atraumatic Eyes: Other: Pupils are equal and reactive with bilateral lens implants noted, no scleral icterus Neck: Other: No lymphadenopathy trachea midline Resp: Other: Clear to auscultation bilaterally, rapid shallow respirations, no accessory muscle use Cardio: Other: Regular rate, 2+ bilateral radial pedal pulses, 2/6 systolic murmur, no JVD GI: Other: Abdomen is overtly distended, tight, diffusely tender to touch with more severe pain localizing in the right upper quadrant, tympanic on percussion, no rebound tenderness, normoactive bowel sounds Skin: Other: No pallor, non jaundice Neuro: Other: Alert oriented, speech is clear, no facial asymmetry, no localizing neurologic deficits noted during the course of conversation Extrem: Other: No clubbing, cyanosis or edema, moves all extremities equally Psych: Other: Patient is in overt pain but has appropriate affect and is cooperative, judgment and insight intact Objective Data Vital Signs Vital Signs: Vital Signs - 24 hr 08/03/25 10:00 08/03/25 14:00 08/03/25 20:00 Temperature 98.3 F Pulse Rate 103 H Respiratory Rate 18 Blood Pressure 147/71 H Pulse Oximetry 93 Oxygen Delivery Room Air Room Air 08/03/25 21:50 08/04/25 06:00 08/04/25 08:00 Temperature 98.4 F 99.2 F Pulse Rate 89 88 Respiratory Rate 14 16 Blood Pressure 112/63 149/62 H Pulse Oximetry 94 95 Oxygen Delivery Room Air Intake/Output Intake/Output: Intake & Output 08/01/25 08/02/25 08/03/25 08/04/25 23:59 23:59 23:59 23:59 Intake Total 2190 1865.8 1045 Output Total 900 900 Balance 1290 965.8 1045 Meds/Results Medications: Active Medications Generic Name Dose Route Start Last Admin Trade Name Freq PRN Reason Stop Dose Admin Acetaminophen 650 mg 08/01/25 22:49 Acetaminophen 325 Mg Tablet PO Q4H PRN Mild Pain (1-3) or Fever Aspirin 81 mg 08/03/25 21:00 08/03/25 20:41 Aspirin 81 Mg Enteric Tablet PO 81 mg HS SHARI Administration Dextrose 12.5 gm 08/02/25 09:28 Dextrose 50% 25 Gm/50 Ml Syringe IV PUSH PRN PRN Hypoglycemia Protocol Diazepam 2.5 mg 08/01/25 22:51 08/03/25 02:57 Diazepam Inj (*Crx) 10 Mg/2 Ml Syringe IV PUSH 2.5 mg Q6H PRN Administration Nausea And Vomiting Glucagon 1 mg 08/02/25 09:28 Glucagon For Inj 1 Mg Vial IM PRN PRN Hypoglycemia Protocol Glucose 15 gm 08/02/25 09:28 Glucose Oral Gel 15 Gm Of Glucse In 37.5 Gm Tube PO PRN PRN Hypoglycemia Protocol Hydrochlorothiazide 12.5 mg 08/03/25 10:20 08/03/25 10:37 Hydrochlorothiazide 12.5 Mg Capsule PO 12.5 mg On Hold: 08/03/25 14:17 DAILY SHARI Administration Hydromorphone HCl 0.5 mg 08/02/25 11:27 08/03/25 10:37 Hydromorphone Hcl Inj (*Crx) 1 Mg/Ml Syr IV PUSH 0.5 mg Q3H PRN Administration Pain Rated 7-10 Dextrose 1,000 mls @ 100 mls/hr 08/02/25 09:28 Dextrose 5% 1,000 Ml IVPB PRN PRN Hypoglycemia Protocol Piperacillin Sod/Tazobactam 50 mls @ 100 mls/hr 08/03/25 15:00 08/04/25 04:17 Sod 3.375 gm/ Sodium Chloride IVPB Infused Q6H SHARI Infusion Sodium Chloride 1,000 mls @ 75 mls/hr 08/03/25 14:20 08/04/25 03:48 Normal Saline Iv IV CONT 75 mls/hr .[id number] SHARI Administration Ketorolac Tromethamine 15 mg 08/02/25 12:00 08/04/25 05:11 Ketorolac 15 Mg/Ml Vial (*Bkc) IV PUSH 15 mg Q6H SHARI Administration Lisinopril 40 mg 08/03/25 10:20 08/03/25 14:33 Lisinopril 20 Mg Tablet PO Not Given On Hold: 08/03/25 10:22 DAILY SHARI Melatonin 3 mg 08/03/25 21:00 08/03/25 20:42 Melatonin 3 Mg Tablet PO 3 mg HS SHARI Administration Pantoprazole Sodium 40 mg 08/02/25 21:00 08/03/25 20:41 Pantoprazole 40 Mg Tablet PO 40 mg Q12HR SHARI Administration Simvastatin 20 mg 08/03/25 21:00 08/03/25 20:42 Simvastatin 20 Mg Tablet PO 20 mg HS SHARI Administration Radiology Results: ITS Impressions Chest/Abdomen/Pelvis CTA 08/02/25 07:01 IMPRESSION: 1. Small sliding hiatal hernia. Upper Quadrant Ultrasound 08/02/25 15:57 IMPRESSION: 1. No mobile gallstones. Gallbladder is mildly distended in size with thickening of gallbladder wall. Possible small polyps of the wall of the gallbladder. Borderline size of the extrahepatic bile ducts. 2. Please correlate with liver function results. If symptoms warrant further evaluation with MRCP or hepatobiliary nuclear scan may be considered. Labs Labs: Laboratory Results - last 24 hr 08/03/25 08/03/25 08/03/25 06:01 15:19 16:59 WBC RBC Hgb Hct MCV MCH MCHC RDW Plt Count MPV Sodium 133 L Potassium 4.0 Chloride 100 Carbon Dioxide 23 Anion Gap 10 BUN 29 H Creatinine 1.37 H Estim Creat Clear Calc 41 Estimated GFR 50 L Glucose 108 POC Capillary Glucose 123 H 116 H Lactic Acid 1.2 Calcium 9.5 Total Bilirubin 1.7 H AST 51 ALT 62 H Alkaline Phosphatase 69 Total Protein 6.7 Albumin 4.0 08/03/25 08/04/25 08/04/25 23:48 05:23 05:45 WBC 9.8 RBC 4.31 L Hgb 13.0 L Hct 39.0 L MCV 90.5 MCH 30.2 MCHC 33.3 RDW 13.0 Plt Count 108 L MPV 10.8 H Sodium Potassium Chloride Carbon Dioxide Anion Gap BUN Creatinine Estim Creat Clear Calc Estimated GFR Glucose POC Capillary Glucose 103 115 H Lactic Acid Calcium Total Bilirubin AST ALT Alkaline Phosphatase Total Protein Albumin Quality VTE Prophylaxis VTE prophylaxis: mechanical ordered (SCDs)
--- NOTE | 2025-08-04 09:29 | PC.NURSE ---
To Radiology for Hida Scan per wheelchair.
[2025-08-04] MEDS: PANTOPRAZOLE 40 MG TABLET PO (11:14)
--- NOTE | 2025-08-04 11:15 | PC.NURSE ---
[facility]
--- NOTE | 2025-08-04 12:30 | P.PNGS_ITS ---
Progress Note: A&P Assessment and Plan (1) Biliary dyskinesia: Code(s): K82.8 - Other specified diseases of gallbladder Status: Acute Assessment and Plan: * Acute cholecystitis ruled out on HIDA scan this AM. Has poor gallbladder function, but doesn't seem to be having classic gallbladder symptoms. Could try low fat diet and will not need surgery during this admission. He can follow up as an outpatient to discuss possible elective surgery at some point in the future. (2) Right upper quadrant pain: Code(s): R10.11 - Right upper quadrant pain Status: Acute Assessment and Plan: * Pain a little more in the abdomen and not over rib cage today. Due to the worsening abdominal pain after EGD, I would like to get a repeat CT abd/pelvis to rule out perforation. If this is normal, will start diet and allow patient to be discharged once medically stable. (3) Schatzki ring of distal esophagus: Onset Date: 2021 Code(s): K22.2 - Esophageal obstruction Status: Acute Subjective Subjective Date/Time Seen: 08/04/25 12:30 Interval history: No symptoms during HIDA scan. Still having RUQ pain and now some pain in the lower abdomen as well. No nausea/vomiting. Passing flatus. No BM for a couple days but hasn't had much food either. Exam GI: Inspection: non-distended GI Palp: Yes Tenderness to palpation present (GI) (RUQ and slightly in lower abdomen as well), No Guarding due to palpation present (GI) and No Rebound tenderness present Auscultation: normal bowel sounds Objective Data Vital Signs Vital Signs: Vital Signs - 24 hr 08/03/25 14:00 08/03/25 20:00 08/03/25 21:50 Temperature 98.3 F 98.4 F Pulse Rate 103 H 89 Respiratory Rate 18 14 Blood Pressure 147/71 H 112/63 Pulse Oximetry 93 94 Oxygen Delivery Room Air 08/04/25 06:00 08/04/25 08:00 Temperature 99.2 F Pulse Rate 88 Respiratory Rate 16 Blood Pressure 149/62 H Pulse Oximetry 95 Oxygen Delivery Room Air Intake/Output Intake/Output: Intake & Output 08/01/25 08/02/25 08/03/25 08/04/25 23:59 23:59 23:59 23:59 Intake Total 2190 1865.8 1045 Output Total 900 900 Balance 1290 965.8 1045 Meds/Results Medications: Active Medications Generic Name Dose Route Start Last Admin Trade Name Freq PRN Reason Stop Dose Admin Acetaminophen 650 mg 08/01/25 22:49 Acetaminophen 325 Mg Tablet PO Q4H PRN Mild Pain (1-3) or Fever Aspirin 81 mg 08/03/25 21:00 08/03/25 20:41 Aspirin 81 Mg Enteric Tablet PO 81 mg HS SHARI Administration Dextrose 12.5 gm 08/02/25 09:28 Dextrose 50% 25 Gm/50 Ml Syringe IV PUSH PRN PRN Hypoglycemia Protocol Diazepam 2.5 mg 08/01/25 22:51 08/03/25 02:57 Diazepam Inj (*Crx) 10 Mg/2 Ml Syringe IV PUSH 2.5 mg Q6H PRN Administration Nausea And Vomiting Glucagon 1 mg 08/02/25 09:28 Glucagon For Inj 1 Mg Vial IM PRN PRN Hypoglycemia Protocol Glucose 15 gm 08/02/25 09:28 Glucose Oral Gel 15 Gm Of Glucse In 37.5 Gm Tube PO PRN PRN Hypoglycemia Protocol Hydrochlorothiazide 12.5 mg 08/03/25 10:20 08/03/25 10:37 Hydrochlorothiazide 12.5 Mg Capsule PO 12.5 mg On Hold: 08/03/25 14:17 DAILY SHARI Administration Hydromorphone HCl 0.5 mg 08/02/25 11:27 08/03/25 10:37 Hydromorphone Hcl Inj (*Crx) 1 Mg/Ml Syr IV PUSH 0.5 mg Q3H PRN Administration Pain Rated 7-10 Dextrose 1,000 mls @ 100 mls/hr 08/02/25 09:28 Dextrose 5% 1,000 Ml IVPB PRN PRN Hypoglycemia Protocol Piperacillin Sod/Tazobactam 50 mls @ 100 mls/hr 08/03/25 15:00 08/04/25 11:13 Sod 3.375 gm/ Sodium Chloride IVPB 100 mls/hr Q6H SHARI Administration Sodium Chloride 1,000 mls @ 75 mls/hr 08/03/25 14:20 08/04/25 03:48 Normal Saline Iv IV CONT 75 mls/hr .[id number] SHARI Administration Ketorolac Tromethamine 15 mg 08/02/25 12:00 08/04/25 11:18 Ketorolac 15 Mg/Ml Vial (*Bkc) IV PUSH 15 mg Q6H SAHRI Administration Lisinopril 40 mg 08/03/25 10:20 08/03/25 14:33 Lisinopril 20 Mg Tablet PO Not Given On Hold: 08/03/25 10:22 DAILY SHARI Melatonin 3 mg 08/03/25 21:00 08/03/25 20:42 Melatonin 3 Mg Tablet PO 3 mg HS SHARI Administration Pantoprazole Sodium 40 mg 08/02/25 21:00 08/04/25 11:14 Pantoprazole 40 Mg Tablet PO 40 mg Q12HR SHARI Administration Simvastatin 20 mg 08/03/25 21:00 08/03/25 20:42 Simvastatin 20 Mg Tablet PO 20 mg HS SHARI Administration Radiology Results: ITS Impressions Chest/Abdomen/Pelvis CTA 08/02/25 07:01 IMPRESSION: 1. Small sliding hiatal hernia. Upper Quadrant Ultrasound 08/02/25 15:57 IMPRESSION: 1. No mobile gallstones. Gallbladder is mildly distended in size with thickening of gallbladder wall. Possible small polyps of the wall of the gallbladder. Borderline size of the extrahepatic bile ducts. 2. Please correlate with liver function results. If symptoms warrant further evaluation with MRCP or hepatobiliary nuclear scan may be considered. Hepatobiliary Scan Nuclear Medicine 08/04/25 11:22 Impression: 1: Low gallbladder ejection fraction measuring 12%. Low GBEF is associated with gallbladder dysfunction, although not specific for acute or chronic cholecystitis. Labs Labs: Laboratory Results - last 24 hr 08/03/25 08/03/25 08/03/25 15:19 16:59 23:48 WBC RBC Hgb Hct MCV MCH MCHC RDW Plt Count MPV Sodium 133 L Potassium 4.0 Chloride 100 Carbon Dioxide 23 Anion Gap 10 BUN 29 H Creatinine 1.37 H Estim Creat Clear Calc 41 Estimated GFR 50 L Glucose 108 POC Capillary Glucose 116 H 103 Lactic Acid 1.2 Calcium 9.5 Total Bilirubin 1.7 H AST 51 ALT 62 H Alkaline Phosphatase 69 Total Protein 6.7 Albumin 4.0 08/04/25 08/04/25 08/04/25 05:23 05:45 11:45 WBC 9.8 RBC 4.31 L Hgb 13.0 L Hct 39.0 L MCV 90.5 MCH 30.2 MCHC 33.3 RDW 13.0 Plt Count 108 L MPV 10.8 H Sodium Potassium Chloride Carbon Dioxide Anion Gap BUN Creatinine Estim Creat Clear Calc Estimated GFR Glucose POC Capillary Glucose 115 H 112 H Lactic Acid Calcium Total Bilirubin AST ALT Alkaline Phosphatase Total Protein Albumin
[2025-08-04 14:00] VITALS: BP 135/68; PULSE 83; RESP 18; TEMP 37.3; O2SAT 96
--- NOTE | 2025-08-04 15:07 | P.PNGI_ITS ---
Progress Note: A&P Assessment and Plan (1) Right upper quadrant pain: Code(s): R10.11 - Right upper quadrant pain Status: Acute Assessment and Plan: hida c/w biliary dyskinesia, no plan for urgent surgery but patient can follow- up with surgery in office egd noted mild esophagitis with ring that was dilated but doubt that will cause his rt pain he can not get mrcp- he has pacemaker will follow only as needed (2) Biliary dyskinesia: Code(s): K82.8 - Other specified diseases of gallbladder Status: Acute Assessment and Plan: will follow-up with surgery (3) Schatzki ring of distal esophagus: Onset Date: 2021 Code(s): K22.2 - Esophageal obstruction Status: Acute Assessment and Plan: he is eating (4) Esophagitis: Code(s): K20.90 - Esophagitis, unspecified without bleeding Status: Acute (5) Hiatal hernia: Code(s): K44.9 - Diaphragmatic hernia without obstruction or gangrene Status: Acute Subjective Date/time seen: 08/04/25 15:07 Interval history: he is eating low fat diet still some discomfort in ruq Review of Systems Review of Systems: All systems reviewed & are unremarkable except as noted in HPI and below Exam Const: General: comfortable HENMT: Face/Nose/Sinus: Normal nares present Eyes: Sclera: sclerae normal Neck: Neck: supple Resp: Auscultation: clear to auscultation bilaterally Cardio: Rate: regular rate GI: Inspection: non-distended GI Palp: Yes Tenderness to palpation present (GI) (RUQ and slightly in lower abdomen as well), No Guarding due to palpation present (GI) and No Rebound tenderness present Auscultation: normal bowel sounds Skin: General skin exam: normal color Neuro: Speech: normal speech Motor exam (neuro): 5/5 motor strength present throughout Extrem: General: normal to inspection Psych: Mental Status: mental status grossly normal Objective Data Vital Signs Vital Signs: Vital Signs - 24 hr 08/03/25 20:00 08/03/25 21:50 08/04/25 06:00 Temperature 98.4 F 99.2 F Pulse Rate 89 88 Respiratory Rate 14 16 Blood Pressure 112/63 149/62 H Pulse Oximetry 94 95 Oxygen Delivery Room Air 08/04/25 08:00 08/04/25 14:00 Temperature 99.1 F Pulse Rate 83 Respiratory Rate 18 Blood Pressure 135/68 Pulse Oximetry 96 Oxygen Delivery Room Air Intake/Output Intake/Output: Intake & Output 08/01/25 08/02/25 08/03/25 08/04/25 23:59 23:59 23:59 23:59 Intake Total 2190 1865.8 1095 Output Total 900 900 Balance 1290 965.8 1095 Meds/Results Medications: Active Medications Generic Name Dose Route Start Last Admin Trade Name Freq PRN Reason Stop Dose Admin Acetaminophen 650 mg 08/01/25 22:49 Acetaminophen 325 Mg Tablet PO Q4H PRN Mild Pain (1-3) or Fever Aspirin 81 mg 08/03/25 21:00 08/03/25 20:41 Aspirin 81 Mg Enteric Tablet PO 81 mg HS SHARI Administration Dextrose 12.5 gm 08/02/25 09:28 Dextrose 50% 25 Gm/50 Ml Syringe IV PUSH PRN PRN Hypoglycemia Protocol Diazepam 2.5 mg 08/01/25 22:51 08/03/25 02:57 Diazepam Inj (*Crx) 10 Mg/2 Ml Syringe IV PUSH 2.5 mg Q6H PRN Administration Nausea And Vomiting Glucagon 1 mg 08/02/25 09:28 Glucagon For Inj 1 Mg Vial IM PRN PRN Hypoglycemia Protocol Glucose 15 gm 08/02/25 09:28 Glucose Oral Gel 15 Gm Of Glucse In 37.5 Gm Tube PO PRN PRN Hypoglycemia Protocol Hydrochlorothiazide 12.5 mg 08/03/25 10:20 08/03/25 10:37 Hydrochlorothiazide 12.5 Mg Capsule PO 12.5 mg On Hold: 08/03/25 14:17 DAILY SHARI Administration Hydromorphone HCl 0.5 mg 08/02/25 11:27 08/03/25 10:37 Hydromorphone Hcl Inj (*Crx) 1 Mg/Ml Syr IV PUSH 0.5 mg Q3H PRN Administration Pain Rated 7-10 Dextrose 1,000 mls @ 100 mls/hr 08/02/25 09:28 Dextrose 5% 1,000 Ml IVPB PRN PRN Hypoglycemia Protocol Sodium Chloride 1,000 mls @ 75 mls/hr 08/03/25 14:20 08/04/25 03:48 Normal Saline Iv IV CONT 75 mls/hr .[id number] SHARI Administration Piperacillin Sod/Tazobactam 50 mls @ 100 mls/hr 08/04/25 18:00 Sod 3.375 gm/ Sodium Chloride IVPB Q6HR SHARI Ketorolac Tromethamine 15 mg 08/02/25 12:00 08/04/25 11:18 Ketorolac 15 Mg/Ml Vial (*Bkc) IV PUSH 15 mg Q6H SHARI Administration Lisinopril 40 mg 08/03/25 10:20 08/03/25 14:33 Lisinopril 20 Mg Tablet PO Not Given On Hold: 08/03/25 10:22 DAILY SHARI Melatonin 3 mg 08/03/25 21:00 08/03/25 20:42 Melatonin 3 Mg Tablet PO 3 mg HS SHARI Administration Pantoprazole Sodium 40 mg 08/02/25 21:00 08/04/25 11:14 Pantoprazole 40 Mg Tablet PO 40 mg Q12HR SHARI Administration Simvastatin 20 mg 08/03/25 21:00 08/03/25 20:42 Simvastatin 20 Mg Tablet PO 20 mg HS SHARI Administration Radiology Results: ITS Impressions Chest/Abdomen/Pelvis CTA 08/02/25 07:01 IMPRESSION: 1. Small sliding hiatal hernia. Upper Quadrant Ultrasound 08/02/25 15:57 IMPRESSION: 1. No mobile gallstones. Gallbladder is mildly distended in size with thickening of gallbladder wall. Possible small polyps of the wall of the gallbladder. Borderline size of the extrahepatic bile ducts. 2. Please correlate with liver function results. If symptoms warrant further evaluation with MRCP or hepatobiliary nuclear scan may be considered. Hepatobiliary Scan Nuclear Medicine 08/04/25 11:22 Impression: 1: Low gallbladder ejection fraction measuring 12%. Low GBEF is associated with gallbladder dysfunction, although not specific for acute or chronic cholecystitis. Abdomen/Pelvis CT 08/04/25 13:04 IMPRESSION: 1. Nonspecific gallbladder wall thickening persists. Cholecystitis not excluded. 2. New small right pleural effusion with bibasilar atelectasis and/or airspace disease 3. Additional findings as above. Labs Labs: Laboratory Results - last 24 hr 08/03/25 08/03/25 08/03/25 15:19 16:59 23:48 WBC RBC Hgb Hct MCV MCH MCHC RDW Plt Count MPV Sodium 133 L Potassium 4.0 Chloride 100 Carbon Dioxide 23 Anion Gap 10 BUN 29 H Creatinine 1.37 H Estim Creat Clear Calc 41 Estimated GFR 50 L Glucose 108 POC Capillary Glucose 116 H 103 Lactic Acid 1.2 Calcium 9.5 Total Bilirubin 1.7 H AST 51 ALT 62 H Alkaline Phosphatase 69 Total Protein 6.7 Albumin 4.0 08/04/25 08/04/25 08/04/25 05:23 05:45 11:45 WBC 9.8 RBC 4.31 L Hgb 13.0 L Hct 39.0 L MCV 90.5 MCH 30.2 MCHC 33.3 RDW 13.0 Plt Count 108 L MPV 10.8 H Sodium Potassium Chloride Carbon Dioxide Anion Gap BUN Creatinine Estim Creat Clear Calc Estimated GFR Glucose POC Capillary Glucose 115 H 112 H Lactic Acid Calcium Total Bilirubin AST ALT Alkaline Phosphatase Total Protein Albumin
--- NOTE | 2025-08-04 16:42 | P.DS_ITS ---
DS: Admitting Diagnosis Discharge Date 08/04/2025 Admitting Diagnosis RUQ pain DS: Discharge Diagnosis Discharge Diagnosis (1) Right upper quadrant pain: Code(s): R10.11 - Right upper quadrant pain Status: Acute Assessment and Plan: Unable to do MRCP due to pacemaker Surgery consulted pending recommendations --Plan for HIDA performed 08/04. Per surg: CT shows no intraabdominal changes. HIDA scan rules out acute cholecystitis. Just has gallbladder dysfunction. If he can tolerate low fat diet, OK to discharge home and f/u as outpatient. -Zosyn D/C Blood cultures pending, will follow s/p D/C (2) Acute obstruction of esophagus: Code(s): K22.2 - Esophageal obstruction Status: Acute Assessment and Plan: GI consulted --hida c/w biliary dyskinesia, no plan for urgent surgery but patient can follow-up with surgery in office egd noted mild esophagitis with ring that was dilated but doubt that will cause his rt pain he can not get mrcp- he has pacemaker will follow only as needed EKG r/o cardiac Protonix b.i.d. Tolerating low fat diet (3) Epigastric abdominal pain: Code(s): R10.13 - Epigastric pain Status: Acute Assessment and Plan: Resolved. See RUQ pain above. 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 He was acutely uncomfortable and writhing in pain, with associated nausea and vomiting. Initial evaluation included a CTA of the chest, abdomen, and pelvis, which ruled out vascular etiologies such as dissection or aneurysm, but revealed a distended gallbladder, a small sliding hiatal hernia, and a dilated thoracic esophagus with possible outlet obstruction. Laboratory studies were notable for mild hyponatremia, elevated BUN and creatinine, and a transiently elevated lactic acid, which normalized with resuscitation. Liver enzymes were initially normal. Gastroenterology was consulted for suspected esophageal obstruction and possible achalasia. The patient was made NPO and started on IV fluids and proton pump inhibitor therapy. EGD revealed mild esophagitis and a Schatzki ring at the GE junction, which was dilated; no significant obstruction or mass was identified. Despite endoscopic intervention, the patient continued to experience right upper quadrant (RUQ) pain. Abdominal ultrasound demonstrated a mildly distended gallbladder with wall thickening and possible small polyps, but no gallstones. Due to the presence of a pacemaker, MRCP was not feasible. A HIDA scan was subsequently performed, revealing a low gallbladder ejection fraction (12%), consistent with biliary dyskinesia, but without evidence of acute cholecystitis. The patient was managed conservatively with a low-fat diet, pain control, and supportive care. Antibiotics (Zosyn) were initiated but discontinued after acute cholecystitis was ruled out. His pain gradually improved, and he was able to tolerate a low-fat diet. Blood cultures remained pending at discharge. The patient remained hemodynamically stable throughout his hospitalization, with normalization of laboratory abnormalities and no further episodes of vomiting or significant abdominal distension. He was discharged in stable condition with instructions to continue a low-fat diet, take tramadol as needed for pain, and follow up with general surgery and gastroenterology as an outpatient for further management of biliary dyskinesia and esophageal pathology. Home antihypertensive and other chronic medications were resumed as appropriate. He was advised to return for any worsening symptoms, including persistent abdominal pain, fever, or gastrointestinal symptoms. Status at Discharge Overall status at discharge: patient is progressing back to baseline Time Spent with Patient Time attestation: Total time spent providing and/or coordinating discharge services: Time spent: Greater than 30 minutes Exam Narrative: General: well appearing, appears stated age. HEENT: normocephalic, atraumatic. Mucous membranes moist. EOMI, PERRLA, bilateral sclera anicteric, no conjunctival injection. Neck supple without JVD, lymphadenopathy, or bruit. Respiratory: clear bilaterally. No rales/rhonic/wheezes. Cardiovascular: Regular rate and rhythm, normal S1-S2. No murmurs, rubs, or clicks. PMI is nondisplaced, capillary refill less than 3 second. Abdomen: Mild TTP RUQ, non distended Extremities: No cyanosis, clubbing, or edema present. Pulses are palpable 2/2. Active ROM to all four extremities. Neuro: Alert and orientated x 4. PERRLA. Cranial nerves 2-12 intact without focal deficit. Skin: Warm, dry, and intact, without rash, erythema, or lesion. Psych: pleasant, cooperative, normal speech, normal affect, no hallucinations, no dysarthia HENMT: Other: Mucous membranes are tacky Cardio: Other: Regular rate, 2+ bilateral radial pedal pulses, 2/6 systolic murmur, no JVD Skin: Other: No pallor, non jaundice Extrem: Other: No clubbing, cyanosis or edema, moves all extremities equally Psych: Other: Patient is in overt pain but has appropriate affect and is cooperative, judgment and insight intact DS: Data Data Completed and Pending Completed studies during hospitalization: Pending at discharge 08/02/25 14:48 Surgical [PTH] Routine Surgical [PTH] Routine Labs on day of discharge: Labs from last 24 hours 08/04/25 08/04/25 08/04/25 11:45 05:45 05:23 WBC 9.8 RBC 4.31 L Hgb 13.0 L Hct 39.0 L MCV 90.5 MCH 30.2 MCHC 33.3 RDW 13.0 Plt Count 108 L MPV 10.8 H Sodium Potassium Chloride Carbon Dioxide Anion Gap BUN Creatinine Estim Creat Clear Calc Estimated GFR Glucose POC Capillary Glucose 112 H 115 H Calcium Total Bilirubin AST ALT Alkaline Phosphatase Total Protein Albumin 08/03/25 08/03/25 08/03/25 23:48 16:59 15:19 WBC RBC Hgb Hct MCV MCH MCHC RDW Plt Count MPV Sodium 133 L Potassium 4.0 Chloride 100 Carbon Dioxide 23 Anion Gap 10 BUN 29 H Creatinine 1.37 H Estim Creat Clear Calc 41 Estimated GFR 50 L Glucose 108 POC Capillary Glucose 103 116 H Calcium 9.5 Total Bilirubin 1.7 H AST 51 ALT 62 H Alkaline Phosphatase 69 Total Protein 6.7 Albumin 4.0 Discharge Plan Discharge Attending physician on discharge: Bharat Ojeda Consulting providers: Jc Shrestha; Marci Hoffman Discharging Clinician: Marci Hoffman Anticipated Discharge Date/Time: 08/04/25 18:00 Patient Disposition: Home Activity: as tolerated Diet: low fat Discharge Instructions: 1. Take the medication, tramadol, as needed for pain, this dose should last you until you have a follow-up appt with surgery, their contact information is at tached. 2. I have attached the gastrointestinal physicians information, Dr. Momo Miller, you can follow-up with him as needed. 3. Continue a low fat diet. Continue to check your blood pressure and blood sugar at home if applicable. Keep your scheduled appts with your primary care provider and any specialist that you may see. Return to the emergency department if you develop sudden shortness of breath, chest pain, a fever of greater than 101.5, or nausea, vomiting, abd pain, or diarrhea that does not go away. Follow-up with your primary care provider within 1-2 weeks, they will want to be updated on your inpatient stay in the hospital. Thank you for choosing [facility] for your healthcare needs. Patient Language: Thai Follow-up/Referrals: Amarjit Iqbal MD [Physician, Gastroenterology] - Other Referral Note: As needed Jc Shrestha DO [Physician, General Surgery] - Call for Appointment Discharge Medications: New tramadol 50 mg tablet 50 mg PO Q4-6H PRN (Reason: pain) Qty: 30 0RF Rx Instructions: Take 1/2 pill every 4-6 hours for pain Continued felodipine 5 mg tablet extended release 24 hr 5 mg PO DAILY aspirin 81 mg tablet,delayed release (DR/EC) 81 mg PO HS ciclopirox 8 % solution 1 applic TOPICAL DAILY Patient Comments: fungus on toenail simvastatin 20 mg tablet 20 mg PO HS lisinopril 40 mg tablet 40 mg PO DAILY fluticasone propionate 50 mcg/actuation spray,suspension 2 spray INTRANASAL DAILY PRN (Reason: Allergy Symptoms) melatonin 3 mg Tablet 3 mg PO HS eszopiclone 2 mg tablet 2 mg PO HS hydrochlorothiazide 12.5 mg tablet 12.5 mg PO DAILY Date of admission: 08/02/25 18:48 Primary Care Provider: Fernando,Davida Admitting Provider: Roxy Arriaza Attending physician on admission: Roxy Arriaza Condition: Stable Quality VTE Prophylaxis VTE prophylaxis: mechanical ordered (SCDs) Hospitalist MIPS Heart Failure (Exclusion) Patient has history of Heart Transplant or Left Ventricular Assistive Device?: No IF YES, STOP HERE Heart Failure (Qualifier) Patient has current or prior documentation of LVEF less than or equal to 40%, or mod/servere depressed LVSF?: No IF NO, STOP HERE
== END 2025-08-04 18:01 | disposition home or self-care (01) | DRG 392 ==
LOC: ANHED 20:22 → ANH3MED 23:23 → ANH3MEDSUR 08-03 10:25
PROVIDERS: Internal Medicine Gastroenterology; Nurse Practitioner Gerontology; Admitting Provider Internal Medicine; Emergency Provider Student in an Organized Health Care Education/Training Program; PCP Internal Medicine
PROC: 0DJ08ZZ Inspection of Upper Intestinal Tract, Via Natural or Artificial Opening Endoscopic (ICD-10-PCS; principal; 2025-08-02 16:15)
DX: K22.2 Esophageal obstruction (principal); E87.1 Hypo-osmolality and hyponatremia; K21.00 Gastro-esophageal reflux disease with esophagitis, without bleeding; K22.0 Achalasia of cardia; K44.9 Diaphragmatic hernia without obstruction or gangrene; K82.8 Other specified diseases of gallbladder; R07.89 Other chest pain; E86.0 Dehydration; I10 Essential (primary) hypertension; M54.9 Dorsalgia, unspecified; G89.29 Other chronic pain; I35.0 Nonrheumatic aortic (valve) stenosis; Z95.0 Presence of cardiac pacemaker
CPT/HCPCS: 36415; 71275; 74174; 74176; 76705; 78227; 80048; 80053; 81003; 82948; 83605; 83690; 84484; 85025; 85027; 87040; 88305; 93005; 96374; 96375; 99285; A9270; A9537; C1726; G0378; J1171; J1885; J2270; J2405; J2470; J2543; J2704; J2805; J3010; J3360; J7030; J7120; Q9967

== ENCOUNTER 2025-08-20 15:18 | Outpatient (CLI) | payer MEDICARE, OTHER, SELFPAY ==
--- NOTE | ~2025-08-20 | XR_ITS ---
EXAMINATION: XR chest 2V DATE: 08/20/2025 15:36 INDICATION: Short of breath. TECHNIQUE: Frontal and lateral views of the chest were obtained. COMPARISON: Chest x-ray 03/24/2022 FINDINGS: Heart size is normal. Atherosclerotic aorta. Lungs do not show acute findings. Loop recorder is noted in the left parasternal location. IMPRESSION: 1. No acute findings. Atherosclerotic aorta. Reviewed, dictated and finalized at location T. [employer]IED ADVERTISING CLERK
== END 2025-08-20 15:19 | disposition home or self-care (01) ==
PROVIDERS: PCP Internal Medicine; Visit Provider Internal Medicine
DX: R06.02 Shortness of breath (principal); I70.0 Atherosclerosis of aorta
CPT/HCPCS: 71046